=== PATIENT | female | born 1945 | race Caucasian/White ===

== ENCOUNTER 2017-12-09 08:03 | Outpatient (CLI) | payer MEDICARE, SELFPAY ==
[2017-12-09 11:33] LABS: HCT 40.6 % (36.0-46.0); HGB 13.1 g/dL (12.0-15.5); Mean Corp. HGB Concentration 32.3 g/dL (32.0-36.0); Mean Corpuscular Hemoglobin 28.9 pg (27.0-33.0); Mean Corpuscular Volume 89.4 fL (80-95); Mean Platelet Volume 10.9 fL (8.0-11.0); Platelet Count 321 x1000/uL (130-400); RBC 4.54 m/cumm (4.00-5.20); RBC Distribution Width 13.4 % (11.7-14.6); White Blood Cell Count 4.65 k/cumm (4.4-10.8)
[2017-12-09 11:56] LABS: ALT 23 U/L (12-78); AST 24 U/L (15-37); Albumin 4.2 g/dL (3.4-5.0); Alkaline Phosphatase 114 U/L (46-116); Anion Gap 9.3 mmol/L (3-11); BUN 12 mg/dL (7-18); Bilirubin, Total 0.4 mg/dL (0.2-1.0); CO2 28.7 mmol/L (21.0-32.0); CREATININE 0.71 mg/dL (0.55-1.02); Calcium 9.2 mg/dL (8.5-10.1); Chloride 104 mmol/L (98-107); Cholesterol 310 mg/dL (50-200); Glucose 105 mg/dL (70-100); HDL Cholesterol 39 mg/dL (40-60); LDL CHOLESTEROL 227 mg/dL (<100); Potassium 4.7 mmol/L (3.5-5.1); Sodium 142 mmol/L (136-145); Total Protein 7.8 g/dL (6.4-8.2); Triglyceride 260 mg/dL (30-150)
== END 2017-12-09 08:23 ==
DX: I10 Essential (primary) hypertension (principal); E78.5 Hyperlipidemia, unspecified; K21.9 Gastro-esophageal reflux disease without esophagitis; K44.9 Diaphragmatic hernia without obstruction or gangrene
CPT/HCPCS: 36415; 80053; 80061; 83721; 85027

== ENCOUNTER 2018-08-04 08:33 | Outpatient (CLI) | payer MEDICARE, SELFPAY ==
[2018-08-04 10:51] LABS: Bilirubin Negative (Negative); Blood Moderate (Negative); Clarity Sl Cloudy; Glucose Negative (Negative); Ketones Negative (Negative); Leukocyte Esterase Large (Negative); Nitrite Positive (Negative); Specific Gravity 1.015 (1.005-1.025); Urobilinogen 0.2 EU/dL (Up TO 0.2)
[2018-08-04 11:00] LABS: Bacteria Moderate HPF (Negative); C & S Indicated? Yes; Casts Negative LPF (Negative); Crystals Negative HPF (Negative); Epithelial Cells Negative HPF (Negative); Mucus Negative (Negative); RBC Negative (0-2); WBC >50 HPF (0-5)
== END 2018-08-04 08:53 ==
DX: R30.0 Dysuria (principal)
CPT/HCPCS: 87077; 81003; 81015; 87086; 87186

== ENCOUNTER 2018-08-15 19:04 | Outpatient (REF) | payer MEDICARE, SELFPAY | END 2018-08-15 19:24 | LOC: LBN 19:04 | DX: N89.8 Other specified noninflammatory disorders of vagina (principal) | CPT/HCPCS: 87480; 87510; 87660 ==

== ENCOUNTER 2019-01-08 07:17 | Outpatient (CLI) | payer MEDICARE, SELFPAY ==
[2019-01-08 11:27] LABS: ALT 19 U/L (14-59); AST 16 U/L (15-37); Albumin 3.8 g/dL (3.4-5.0); Alkaline Phosphatase 81 U/L (46-116); Anion Gap 9.5 mmol/L (3-11); BUN 14 mg/dL (7-18); Bilirubin, Total 0.2 mg/dL (0.2-1.0); CO2 28.5 mmol/L (21.0-32.0); CREATININE 0.76 mg/dL (0.55-1.02); Chloride 105 mmol/L (98-107); Glucose 96 mg/dL (70-100); Potassium 4.4 mmol/L (3.5-5.1); Sodium 143 mmol/L (136-145); TSH (W/Ref FT4) 3.74 uIU/mL (0.36-3.74); Total Protein 7.3 g/dL (6.4-8.2)
[2019-01-08 11:41] LABS: Calculated LDL 184 mg/dL; Cholesterol 273 mg/dL (50-200); HDL Cholesterol 36 mg/dL (40-60); Triglyceride 268 mg/dL (30-150)
[2019-01-09 12:54] LABS: HBs Antibody, Qual Negative; HBs Antibody, Quant 3.7 mIU/mL; Hepatitis B Core Antibody Negative (NEGAT); Hepatitis B surface Ag Negative (NEGAT); Hepatitis C Ab w Rflx HCV PCR Negative (NEGAT)
== END 2019-01-08 07:37 ==
DX: E03.9 Hypothyroidism, unspecified; I10 Essential (primary) hypertension; E78.5 Hyperlipidemia, unspecified; F41.9 Anxiety disorder, unspecified; K21.9 Gastro-esophageal reflux disease without esophagitis; C80.1 Malignant (primary) neoplasm, unspecified; G47.00 Insomnia, unspecified; Z11.59 Encounter for screening for other viral diseases
CPT/HCPCS: 36415; 80053; 80061; 86704; 86706; 86803; 87340; 84443

== ENCOUNTER 2019-10-16 08:37 | Outpatient (REF) | payer MEDICARE, SELFPAY ==
[2019-10-16 12:53] LABS: ALT 33 U/L (14-59); AST 9 U/L (15-37); Albumin 4.2 g/dL (3.4-5.0); Alkaline Phosphatase 85 U/L (46-116); BUN 15 mg/dL (7-18); Bilirubin, Total 0.3 mg/dL (0.2-1.0); CREATININE 0.78 mg/dL (0.55-1.02); Calcium 9.5 mg/dL (8.5-10.1); Chloride 103 mmol/L (98-107); GGT 26 U/L (5-55); Glucose 99 mg/dL (74-106); Potassium 4.3 mmol/L (3.5-5.1); Sodium 141 mmol/L (136-145); Total Protein 7.6 g/dL (6.4-8.2)
[2019-10-16 13:01] LABS: Lipase 55 U/L (73-393)
[2019-10-16 18:16] LABS: Bilirubin Negative (Negative); Blood Negative (Negative); Clarity Sl Cloudy (Clear); Glucose Negative (Negative); Ketones Negative (Negative); Leukocyte Esterase Small (Negative); Nitrite Negative (Negative); Specific Gravity 1.025 (1.005-1.025); Urobilinogen 0.2 EU/dL (Up TO 0.2)
[2019-10-16 18:31] LABS: RBC Negative HPF (0-2)
[2019-10-16 18:32] LABS: Bacteria Many HPF (Negative); C & S Indicated? Yes; Casts Negative LPF (Negative); Crystals Negative HPF (Negative); Epithelial Cells Rare HPF (Negative); Mucus Negative (Negative); Other Cells Negative (Negative)
== END 2019-10-16 08:57 ==
LOC: LBN 08:37
DX: E03.9 Hypothyroidism, unspecified (principal); E78.5 Hyperlipidemia, unspecified; F41.9 Anxiety disorder, unspecified; I10 Essential (primary) hypertension; K21.9 Gastro-esophageal reflux disease without esophagitis; R10.11 Right upper quadrant pain; R30.0 Dysuria
CPT/HCPCS: 36415; 80053; 83690; 87077; 81003; 81015; 82977; 87086; 87186

== ENCOUNTER 2019-10-17 02:12 | Outpatient (CLI) | payer MEDICARE, SELFPAY ==
--- NOTE | 2019-10-17 06:00 | DI.US_ITS ---
EXAM: US ABDOMEN CLINICAL HISTORY: RUQ chronic pain/ache,R10.11 TECHNIQUE: Ultrasound abdomen performed using standard protocol. COMPARISON: No exams were available for comparison FINDINGS: LIVER: Normal size. Increased echogenicity, consistent with hepatic steatosis.. No focal liver lesi ons are seen.. GALLBLADDER: No evidence of cholelithiasis. No evidence of wall thickening. No pericholecystic fluid identified. GALARZA'S SIGN: Negative. BILIARY SYSTEM: No intrahepatic or extrahepatic biliary ductal dilation. KIDNEYS: Kidneys are symmetric in size. No evidence of renal calculi. No evidence of hydronephrosis. No renal mass or cyst identified. PANCREAS: Normal where visualized. SPLEEN: Not enlarged. ABDOMINAL AORTA AND IVC: Visualized portions normal caliber. ASCITES: None seen. IMPRESSION: Moderate hepatic steatosis. Normal appearing gallbladder. DATA REPOSITORY:
== END 2019-10-17 02:32 ==
DX: K76.0 Fatty (change of) liver, not elsewhere classified (principal)
CPT/HCPCS: 76700

== ENCOUNTER 2019-11-12 00:42 | Outpatient (CLI) | payer MEDICARE, SELFPAY ==
--- NOTE | 2019-11-12 14:50 | DI.MAMMO_ITS ---
EXAM: MAMMO SCREENING CLINICAL HISTORY: screening,Z12.39 TECHNIQUE: Mammograms were interpreted according to the usual protocol including computer analysis w SMS Assist CAD system, tomosynthesis and C-view imaging. COMPARISON: FINDINGS: Breasts are of moderate density with fairly symmetrical distribution of fibroglandular tissue. No do minant mass or clumped microcalcification is identified in either breast. The current examination is compared with previous examinations including December 2017 and there has been no gross interval dewitt ge in appearance comparison with the previous studies. IMPRESSION: No specific evidence of malignancy at this time. Routine screening examinations are suggested at ye yulia intervals in this age group according to the ACS ACR guidelines. BI-RADS Cat 1 - Negative Breast Density - Category B - Scattered areas of fibroglandular density
== END 2019-11-12 01:02 ==
DX: Z12.31 Encounter for screening mammogram for malignant neoplasm of breast (principal); R92.2 Inconclusive mammogram
CPT/HCPCS: 77063; 77067

== ENCOUNTER 2019-12-13 21:46 | Outpatient (REF) | payer MEDICARE, SELFPAY ==
[2019-12-13 21:19] LABS: Bilirubin Negative (Negative); Blood Negative (Negative); Clarity Sl Cloudy (Clear); Glucose Negative (Negative); Ketones Negative (Negative); Leukocyte Esterase Large (Negative); Nitrite Negative (Negative); Specific Gravity 1.015 (1.005-1.025); Urobilinogen 0.2 EU/dL (Up TO 0.2); pH 7.5 (5-8)
[2019-12-13 21:32] LABS: Bacteria Moderate HPF (Negative); C & S Indicated? Yes; Casts Negative LPF (Negative); Crystals Negative HPF (Negative); Epithelial Cells Few HPF (Negative); Mucus Negative (Negative); RBC 0-2 HPF (0-2); WBC 20-50 HPF (0-5)
== END 2019-12-13 22:06 ==
LOC: LBN 21:46
DX: N39.0 Urinary tract infection, site not specified (principal)
CPT/HCPCS: 87077; 81003; 81015; 87086; 87186

== ENCOUNTER 2021-01-15 01:55 | Outpatient (CLI) | payer MEDICARE, SELFPAY ==
[2021-01-15 12:37] LABS: ALT 23 U/L (14-59); AST 14 U/L (15-37); Albumin 4.1 g/dL (3.4-5.0); Alkaline Phosphatase 90 U/L (46-116); Anion Gap 11.6 mmol/L (3-11); BUN 11 mg/dL (7-18); Bilirubin, Total 0.4 mg/dL (0.2-1.0); CO2 27.4 mmol/L (21.0-32.0); CREATININE 0.7 mg/dL (0.55-1.02); Calcium 9.2 mg/dL (8.5-10.1); Chloride 103 mmol/L (98-107); Glucose 101 mg/dL (74-106); Potassium 3.8 mmol/L (3.5-5.1); Sodium 142 mmol/L (136-145); Total Protein 7.6 g/dL (6.4-8.2)
== END 2021-01-15 01:56 | disposition home or self-care (01) ==
DX: I10 Essential (primary) hypertension (principal); F41.9 Anxiety disorder, unspecified; R63.8 Other symptoms and signs concerning food and fluid intake; K21.9 Gastro-esophageal reflux disease without esophagitis
CPT/HCPCS: 36415; 80053

== ENCOUNTER 2021-01-21 00:56 | Outpatient (CLI) | payer MEDICARE, SELFPAY ==
--- NOTE | 2021-01-21 07:29 | DI.MAMMO_ITS ---
Exam(s) MAMMO DIAGNOSTIC BI EXAM: MAMMO DIAGNOSTIC BI CLINICAL HISTORY: Enlarged lymph node x2 months - enlarging,NIPPLE INVERSION,AXILLARY ADENOPA. TECHNIQUE: Both CC and MLO views of both breast were obtained with 3D tomosynthesis technique and ut ilizing computer aided detection (CAD). Complete left breast ultrasound including left axilla was also performed today. COMPARISON: Prior mammograms dating back to 2011, the most recent being October 2019. This patient a pparently feels a better left breast axillary tail region possibly left axilla FINDINGS: There has been no significant change in the appearance distribution fibroglandular tissue both breast s. There are no CAD designations. There are no new ominous masses nor malignant-appearing microcalcification groups in either breast. There is no new architectural distortion or skin thickening-traction. Benign appearing lymph nodes i n both axillary regions are again noted. IMPRESSION: No radiographic evidence of malignancy Please note that left breast ultrasound performed following this mammogram today also revealed no sig nificant findings in the breast nor in the left axilla. Please see that separate dictated ultrasound report The patient was informed of the findings and follow-up recommendations prior to leaving the [facility] today. BI-RADS Category 2 - Benign Findings Breast Density - Category B - Scattered areas of fibroglandular density Breast density Category C or D implies that the patient has dense breast tissue. Dense breast tissue can make it harder to find cancer on a mammogram. Dense breast tissue is also associated with an incr eased risk of breast cancer. This information about the result of the mammogram report was provided to the patient to raise their awareness. Use this report when you speak with the patient about their risks for breast cancer, which includes their family history. At that time, you may recommend additional screening tests (Ultrasoun d or MRI) as these tests may add significant information. A negative radiographic report should not delay biopsy if a dominant or clinically suspicious mass is present. Up to ten percent of cancers are not identified on mammography. A negative report may reinforce clinical impression. Adenosis and dense breasts may obscure an underlying neoplasm. False positive reports average 6 to 10%. Patient will receive a letter notifying them of these results.
--- NOTE | 2021-01-21 07:29 | DI.US_ITS ---
Exam(s) US BREAST LT COMPLETE EXAM: US BREAST LT COMPLETE CLINICAL HISTORY: Enlarged lymph node x2 months - enlarging,NIPPLE INVERSION,H/O RT AXILLA CA. TECHNIQUE: Complete ultrasound of the left breast was performed including all 4 quadrants, the retro areolar region, and the ipsilateral axilla. COMPARISON: Today's mammogram as well as prior mammograms reviewed FINDINGS: There is no evidence of solid or significant cystic lesions in all 4 quadrants of the left breast nor in the retroareolar region. With respect of the left axilla, there are no concerning masses nor fluid collections. Therefore oswald ign-appearing lymph nodes, this commensurate with what is seen in her left axilla on today's mammogra m (which is also unchanged from prior mammograms). IMPRESSION: Benign ultrasound findings, as described above. BI-RADS Category 2 - Benign Findings Breast Density - Category B - Scattered areas of fibroglandular density Breast density Category C or D implies that the patient has dense breast tissue. Dense breast tissue can make it harder to find cancer on a mammogram. Dense breast tissue is also associated with an incr eased risk of breast cancer. This information about the result of the mammogram report was provided to the patient to raise their awareness. Use this report when you speak with the patient about their risks for breast cancer, which includes their family history. At that time, you may recommend additional screening tests (Ultrasoun d or MRI) as these tests may add significant information. A negative radiographic report should not delay biopsy if a dominant or clinically suspicious mass is present. Up to ten percent of cancers are not identified on mammography. A negative report may reinforce clinical impression. Adenosis and dense breasts may obscure an underlying neoplasm. False positive reports average 6 to 10%. Patient will receive a letter notifying them of these results.
== END 2021-01-21 01:16 ==
DX: N64.59 Other signs and symptoms in breast (principal); R59.0 Localized enlarged lymph nodes
CPT/HCPCS: 76642; 77062; 77066; G0279

== ENCOUNTER 2021-08-29 04:44 | Emergency (ER) | payer MEDICARE, SELFPAY ==
--- NOTE | 2021-08-29 04:45 | RT.EKG_ITS ---
APPROVED REPORT Exam: Resting ECG Reason for Exam: high bp Patient Location: E HR:70 bpm ECG Measurements Heart Rate 70 AXIS TX 180 P 68 QRSd 69 QRS 25 QT 379 T 15 QTc 411 Conclusion Sinus rhythm...normal P axis, V-rate 60- 99 Nonspecific T abnormalities, anterior leads...T <-0.10mV, V2-V4
[2021-08-29 04:50] VITALS: BP 174/99; PULSE 66; RESP 18; TEMP 36.2; O2SAT 98
[2021-08-29 04:58] VITALS: RESP 16
[2021-08-29 05:28] LABS: Abs Immature Grans 0.01 10^3/uL (0.0-0.06); Absolute Basophil Count 0.04 10^3/uL (0.0-0.2); Absolute Eosinophil Count 0.11 10^3/uL (0.0-0.7); Absolute Lymphocyte Count 2.02 10^3/uL (1.2-3.4); Absolute Neutrophil Count 2.86 10^3/uL (1.2-6.7); Basophils % 0.7; HCT 41.9 % (36.0-46.0); HGB 13.1 g/dL (11.2-15.7); Immature Grans % 0.2; Lymphocytes % 35.8; MCH 27.2 pg (27.0-33.0); MCHC 31.3 % (32.0-36.0); MCV 87 fL (80-95); MPV 10.7 fL (8.0-11.0); Monocytes % 10.6; Neutrophils % 50.7; Platelet Count 303 10^3/uL (130-400); RBC 4.82 10^6/uL (3.93-5.22); RDW 13.1 % (11.7-14.6); RDW-SD 41.8 fL; WBC 5.64 10^3/uL (4.4-10.8)
[2021-08-29] MEDS: Metoprolol 50 MG TAB PO (05:29)
[2021-08-29 05:48] LABS: ALT 28 U/L (14-59); AST 19 U/L (15-37); Albumin 4.2 g/dL (3.4-5.0); Alkaline Phosphatase 95 U/L (46-116); Anion Gap 11.4 mmol/L (3-11); BUN 14 mg/dL (7-18); Bilirubin, Total 0.2 mg/dL (0.2-1.0); CO2 27.6 mmol/L (21.0-32.0); CREATININE 0.8 mg/dL (0.55-1.02); Calcium 9.4 mg/dL (8.5-10.1); Chloride 101 mmol/L (98-107); Glucose 112 mg/dL (74-106); Potassium 3.9 mmol/L (3.5-5.1); Sodium 140 mmol/L (136-145); Total Protein 8.4 g/dL (6.4-8.2); Troponin I < 50 ng/L (<or=60)
[2021-08-29 05:55] LABS: TSH (W/Ref FT4) 6.24 uIU/mL (0.36-3.74)
--- NOTE | 2021-08-29 06:02 | ED.GENADUL_ITS ---
Discharge Plan Disposition Patient Disposition: STILL A PATIENT Condition: Stable Discharge Details Clinical Impression: Hypertensive urgency Primary Care Provider: Autumn Segura ED Provider: Alejandro Ibanez Home Meds and New Rx's Prescriptions: New chlorthalidone 25 mg tablet 12.5 mg PO DAILY Qty: 30 0RF Azo Cranberry 250 mg tablet,chewable 250 mg PO TID Qty: 30 0RF Continued acetaminophen [Tylenol Arthritis Pain] 650 mg tablet extended release 650 mg PO Q8H metoprolol tartrate 50 mg tablet 50 mg PO BID Qty: 180 4RF cetirizine [Zyrtec] 10 MG tablet 10 mg PO DAILY aspirin [Aspir-81] 81 MG tablet,delayed release (DR/EC) 81 mg PO DAILY mometasone [Nasonex] 17 GM spray,non-aerosol 1 spray NS BID PRNQty: 3 cholecalciferol (vitamin D3) 1,000 UNIT tablet 1,000 unit PO DAILY alprazolam 0.25 MG tablet 0.25 mg PO DAILY PRNQty: 15 omeprazole-sodium bicarbonate [Zegerid] 1 EACH capsule 1 cap PO DAILY Discontinued Azo Cranberry 250 mg tablet,chewable 250 mg PO TID lisinopril-hydrochlorothiazide 10-12.5 mg tablet 1 tab PO DAILY Qty: 90 4RF Discharge Instructions Instructions: Hypertension (ED) Additional Instructions: Please continue take metoprolol as prescribed. Start chlorthalidone. You received initial dose today and your next dose should be tomorrow. Stop taking lisinopril/hydrochlorothiazide. Monitor your blood pressure twice a day and keep a record. Please contact your primary care physician to arrange follow-up. Return to the ER immediately for any worsening or new concerning symptoms. Referrals: Autumn Segura, MABEL [Primary Care Provider] - Medical Decision Making 613 --76-year-old female here with elevated blood pressure, generally not feeling well with a jittery sensation intermittently as well as prickly sensation in her left arm. Patient is hypertensive on arrival. She did take a dose Xanax of just prior to coming to the emergency department. UTI reassessment has improved. Patient has had some intermittent chest discomfort although not today. EKG was reviewed and interpreted by me: Please see report, sinus rhythm, T wave inversions are noted in V2 and V3, no old for comparison. Plan to troponin. I suspect the patient has hypertensive emergency. Plan to give morning dose of metoprolol 50 mg and I will also start chlorthalidone 12.5 mg. 722 --patient reassessed, blood pressure improved and symptoms resolved. Plan for delta troponin. HPI General Mode of arrival: ambulatory . Date/Time Provider Initiated Documentation: 08/29/21 04:48 . Limitations to Documentation: no limitations . Information obtained by: patient . HPI Narrative: 76-year-old female with multiple medical problems including history of essential hypertension, here with chief complaint of elevated blood pressure. Patient notes her blood pressure has been elevated for weeks. She was seen by her primary care physician about a week ago and metoprolol was decreased from 150 mg daily to 100 mg daily and lisinopril/hydrochlorothiazide was started. She notes that since starting this medication seems like her blood pressure is more elevated. She states that about an hour after he takes medicine she feels dizzy and unwell. She did not take medicine yet today. Patient states since yesterday she has had prickly sensation in her left arm, jittery, and general fatigue. She denies chest discomfort. No shortness of breath. Related Data Home Medications Medication Instructions Recorded Confirmed aspirin 81 mg tablet,delayed 81 mg PO DAILY 07/31/12 08/29/21 release (Aspir-) cetirizine 10 mg tablet (Zyrtec) 10 mg PO DAILY 07/31/12 08/29/21 mometasone 50 mcg/actuation nasal 1 spray NS BID PRN ##3 11/15/13 08/29/21 spray (Nasonex) cholecalciferol (vitamin D3) 25 1,000 unit PO DAILY 11/21/14 08/29/21 mcg (1,000 unit) tablet alprazolam 0.25 mg tablet 0.25 mg PO DAILY PRN #15 tabs 12/29/16 08/29/21 omeprazole 20 mg-sodium 1 cap PO DAILY 11/14/17 08/29/21 bicarbonate 1.1 gram capsule (Zegerid) acetaminophen 650 mg 650 mg PO Q8H 08/15/18 08/29/21 tablet,extended release (Tylenol Arthritis Pain) metoprolol tartrate 50 mg tablet 50 mg PO BID #180 tab-caps 08/20/21 08/29/21 chlorthalidone 25 mg tablet 12.5 mg PO DAILY #30 tabs 08/29/21 cranberry fruit concentrate 250 mg 250 mg PO TID #30 tabs 08/29/21 chewable tablet (Azo Cranberry) Previous Rx's Medication Instructions Recorded metoprolol tartrate 50 mg tablet 50 mg PO BID #180 tab-caps 08/20/21 chlorthalidone 25 mg tablet 12.5 mg PO DAILY #30 tabs 08/29/21 cranberry fruit concentrate 250 mg 250 mg PO TID #30 tabs 08/29/21 chewable tablet (Azo Cranberry) Allergies Allergy/AdvReac Type Severity Reaction Status Date / Time Penicillins Allergy Mild SKIN RASH Verified 08/29/21 04:56 amoxicillin Allergy Unknown HIVES Verified 08/29/21 04:56 metronidazole Allergy Heart Verified 08/29/21 04:56 racing ciprofloxacin [From Cipro] AdvReac Intermediate Muscle Verified 08/29/21 04:56 spasms in legs ciprofloxacin HCl AdvReac Intermediate Muscle Verified 08/29/21 04:56 [From Cipro] spasms in legs doxycycline AdvReac Unknown ANXIETY Verified 08/29/21 04:56 ezetimibe AdvReac Unknown Verified 08/29/21 04:56 Fish Containing Products AdvReac Unknown Fish Oil Verified 08/29/21 04:56 niacin AdvReac Unknown Verified 08/29/21 04:56 Sulfa (Sulfonamide AdvReac Unknown GI UPSET Verified 08/29/21 04:56 Antibiotics) HMG-COA REDUCTASE INHIBITORS AdvReac Unknown Uncoded 08/29/21 04:56 General Stated Complaint: Chest Pain DARIUSZ: 2 Review of Systems All systems reviewed & are unremarkable except as noted in HPI and below Constitutional Constitutional: Reports lethargy and Reports weakness Cardiovascular Cardiovascular: Denies dyspnea Comments: Patient denies chest pain at this time. She does note some sharp discomfort in her chest left anterior intermittently in the past Respiratory Respiratory: Denies cough and Denies dyspnea Musculoskeletal Musculoskeletal: Denies numbness Neurologic Neurologic: Reports as per HPI, Denies numbness, Denies sensory deficit and Reports weakness PFSH All Active Problems (Updated 08/29/21 @ 06:51 by Alejandro Ibanez MD) Hypertensive urgency (Acute) Melanoma (Chronic) + Bx right upper arm 01/2021 (Melanoma) - removed by excision Feb.19. Recommend Q3 month checks x1 yr, then Q6 months for 1 year, then yearly. 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 ; Has had a recurrence and had Moh's surgery Personal history of colonic polyps (Acute 02/17/09) neg path report of polyp done in [place] 2009 Osteoporosis (Acute) DEXA in 2005; DEXA in 2007-stable DEXA in 2009-osteopenia Obstructive sleep apnea syndrome (Acute) C-Pap panic attack witnessed during sleep study Multiple drug allergies (Acute) and intolerances 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 Hyperlipidemia (Chronic) intolerance to statins, Zetia and fish oil Gastroesophageal reflux disease (Chronic) Gastric polyps per EGD 07/29 Barretts esophogus 07/29 [place] [facility] [place] 5 y[place] Hiatal hernia Family history of abdominal aortic aneurysm (AAA) (Chronic 12/29/16) Essential hypertension (Acute 12/15/12) Anxiety (Acute 11/24/12) Medical History Barretts esophagus History of colonic polyps Surgical History Appendectomy Ligation of fallopian tube PROCEDURES UNILAT OOPHORECTOMY MOHS SURGERY OF RIGHT AXILLARY CYSTIC CARCINOMA; U/S OF BLADDER, LIVER, GALLBLADDER Family History Mother , age 88 Essential hypertension Aneurysm Heart disease Hyperlipidemia Stroke HH (hiatus hernia) Bladder cancer Colon cancer Father , age 54 Essential hypertension Aneurysm Heart disease Stroke Sister Essential hypertension Heart disease Hyperlipidemia Asthma Skin cancer Brother Substance abuse Essential hypertension Heart disease Hyperlipidemia Alcohol abuse Throat cancer Maternal Grandfather , age 57 Aneurysm Heart disease Alcohol abuse Paternal Grandfather , age 74 Essential hypertension Heart disease Maternal Grandmother Diabetes Essential hypertension Heart disease Paternal Grandmother Essential hypertension Heart disease Maternal Aunt Aneurysm HH (hiatus hernia) Brother Substance abuse Essential hypertension Heart disease Alcohol abuse Brother Essential hypertension Heart disease Alcohol abuse Son Essential hypertension Alcohol abuse Daughter No problems noted. Daughter No problems noted. Other Family history of abdominal aortic aneurysm (AAA) Social History Smoking/Tobacco Use Status: Former Tobacco Use tobacco type: cigarettes Quit Date: 03/21/89 Second Hand Exposure: Yes Smoking risk assessment performed?: Yes Alcohol Intake: current Alcohol Intake frequency: holidays/special occasions only Drug use: Never Substance use type: does not use Caregiver/Support person: No Household members: spouse Housing: house Communication Needs: None Pets and animals: No Sexually active: No Current gender identity: female What is your relationship status?: How often do you talk on the phone with friends or family?: three or more times per week How often do you get together with friends or relatives?: once per week How often do you attend episcopal or voodoo services?: 1-3 times per year Do you belong to any clubs or organized social groups?: no Panel score (0-1 are the most socially isolated patients): 2 What type of physical activity do you participate in: decline to answer Duration: decline to answer Frequency: decline to answer Isadora/Baptism: [employer] Special isadora needs: No Seatbelt use: always Helmet use: No Drive intox or ride w/intox vibratory pile driver: No Do you feel safe at home: Yes Do you feel safe in your relationship?: Yes Victim of physical abuse: No Victim of emotional abuse: No Victim of sexual abuse: No Would you like helpful sources: No Exam Const General: cooperative and no acute distress HENMT Mouth: moist mucous membranes Eyes Conjunctivae: normal conjunctivae Sclera: normal sclerae EOM: EOM intact bilaterally Neck Neck: trachea midline and supple Resp Auscultation: clear to auscultation bilaterally, no rales, no rhonchi and no wheezes Cardio Jugular venous pressure: no JVD Rate: regular rate and not tachycardic Rhythm: regular rhythm GI Palpation: soft, not firm, no guarding, no masses, not rigid and nontender Skin General skin exam: no rashes or lesions noted Neuro General: patient alert, patient awake, patient oriented x3 and tone normal Cranial Nerves: CN's II-XI intact bilaterally Cognition: normal cognition Speech: speech normal Gait: normal gait Motor: strength 5/5 throughout Sensory Exam: no sensory deficits noted Extrem General: no calf tenderness and no edema Psych Appearance: grossly normal Mental Status: mental status grossly normal Speech and Movement: speech and movement normal Course Vital Signs Vital signs: Vital Signs Temperature 36.2 C L 08/29/21 04:50 Pulse 66 08/29/21 04:50 Respiratory Rate 18 08/29/21 04:50 Blood Pressure 174/99 H 08/29/21 04:50 Pulse Oximetry 98 08/29/21 04:50 Temperature 36.2 C L 08/29/21 04:50 Pulse 66 08/29/21 04:50 Respiratory Rate 16 08/29/21 04:58 Respiratory Effort Non-Labored 08/29/21 04:58 Respiratory Depth Normal 08/29/21 04:58 Respiratory Pattern Normal 08/29/21 04:58 Blood Pressure 174/99 H 08/29/21 04:50 Pulse Oximetry 98 08/29/21 04:50 Pain Level 8 08/29/21 04:50 Lab/Test Results Lab/Test Results: Laboratory Tests Range/Units 08/29/21 08/29/21 08/29/21 05:15 05:15 05:15 WBC (4.4-10.8) 10^3/uL 5.64 RBC (3.93-5.22) 10^6/uL 4.82 Hgb (11.2-15.7) g/dL 13.1 Hct (36.0-46.0) % 41.9 MCV (80-95) fL 87 MCH (27.0-33.0) pg 27.2 MCHC (32.0-36.0) % 31.3 L RDW (11.7-14.6) % 13.1 Plt Count (130-400) 10^3/uL 303 MPV (8.0-11.0) fL 10.7 Immature Gran % 0.2 Neutrophils % 50.7 Lymphocytes % 35.8 Monocytes % 10.6 Eosinophils % 2.0 Basophils % 0.7 Nucleated RBC % (0.0-0.3) % 0.0 Absolute Neutrophils (1.2-6.7) 10^3/uL 2.86 Absolute Lymphocytes (1.2-3.4) 10^3/uL 2.02 Absolute Monocytes (0.1-0.8) 10^3/uL 0.60 Absolute Eosinophils (0.0-0.7) 10^3/uL 0.11 Absolute Basophils (0.0-0.2) 10^3/uL 0.04 Sodium (136-145) mmol/L 140 Potassium (3.5-5.1) mmol/L 3.9 Chloride (98-107) mmol/L 101 Carbon Dioxide (21.0-32.0) mmol/L 27.6 Anion Gap (3-11) mmol/L 11.4 H BUN (7-18) mg/dL 14 Creatinine (0.55-1.02) mg/dL 0.8 Estimated GFR/1.73 m2 (mL/min/1.73m2) >= 60.00 Glucose (74-106) mg/dL 112 H Calcium (8.5-10.1) mg/dL 9.4 Total Bilirubin (0.2-1.0) mg/dL 0.2 AST (15-37) U/L 19 ALT (14-59) U/L 28 Alkaline Phosphatase (46-116) U/L 95 Troponin I (<or=60) ng/L < 50 Total Protein (6.4-8.2) g/dL 8.4 H Albumin (3.4-5.0) g/dL 4.2 TSH (0.36-3.74) uIU/mL 6.24 H Sign Out Sign Out Data: Sign Out Comment: Hypertensive urgency awaiting delta troponin. If negative reassess for likely discharge. Last updated by Alejandro Ibanez MD at 08/29/21 07:27
[2021-08-29 06:15] LABS: FREE T4 1.18 ng/dL (0.76-1.46)
[2021-08-29] MEDS: Chlorthalidone 25 MG TAB 12.5 MG PO (06:23)
[2021-08-29 06:24] VITALS: BP 143/74
[2021-08-29 08:41] LABS: Troponin I < 50 ng/L (<or=60)
--- NOTE | 2021-08-29 09:04 | W.EDPROG ---
Date of service: 08/29/21 Time of Service: 09:05 Medical Decision Making pt signed out to me pending repeat troponin and ekg which are negative and unchanged. She has no symptoms and vitals are stable. Dr. bIanez is having her stop her lisinopril/hctz and started her on chlorthalidone. She is going to f/u with her pcp and return precautions given Sign Out Sign Out Data: Sign Out Comment: Follow-up delta troponin and reassess for disposition. Last updated by Alejandro Ibanez MD at 08/29/21 08:17 Discharge Plan Disposition Patient Disposition: HOME Condition: Stable Discharge Details Clinical Impression: Hypertensive urgency Primary Care Provider: Autumn Segura ED Provider: Russell Jansen Home Meds and New Rx's Prescriptions: New chlorthalidone 25 mg tablet 12.5 mg PO DAILY Qty: 30 0RF Azo Cranberry 250 mg tablet,chewable 250 mg PO TID Qty: 30 0RF Continued acetaminophen [Tylenol Arthritis Pain] 650 mg tablet extended release 650 mg PO Q8H metoprolol tartrate 50 mg tablet 50 mg PO BID Qty: 180 4RF cetirizine [Zyrtec] 10 MG tablet 10 mg PO DAILY aspirin [Aspir-81] 81 MG tablet,delayed release (DR/EC) 81 mg PO DAILY mometasone [Nasonex] 17 GM spray,non-aerosol 1 spray NS BID PRNQty: 3 cholecalciferol (vitamin D3) 1,000 UNIT tablet 1,000 unit PO DAILY alprazolam 0.25 MG tablet 0.25 mg PO DAILY PRNQty: 15 omeprazole-sodium bicarbonate [Zegerid] 1 EACH capsule 1 cap PO DAILY Discontinued Azo Cranberry 250 mg tablet,chewable 250 mg PO TID lisinopril-hydrochlorothiazide 10-12.5 mg tablet 1 tab PO DAILY Qty: 90 4RF Discharge Instructions Instructions: Hypertension (ED) Additional Instructions: Please continue take metoprolol as prescribed. Start chlorthalidone. You received initial dose today and your next dose should be tomorrow. Stop taking lisinopril/hydrochlorothiazide. Monitor your blood pressure twice a day and keep a record. Please contact your primary care physician to arrange follow-up. Return to the ER immediately for any worsening or new concerning symptoms. Referrals: Autumn Segura NP [Primary Care Provider] -
[2021-08-29 09:25] VITALS: BP 116/68; PULSE 72; RESP 16; O2SAT 98
== END 2021-08-29 09:27 | disposition home or self-care (01) ==
PROVIDERS: Student in an Organized Health Care Education/Training Program; Emergency Provider Emergency Medicine
DX: I10 Essential (primary) hypertension (principal)
CPT/HCPCS: 80053; 93005; 99283; 84439; 84443; 84484; 85025; 93010

== ENCOUNTER 2022-04-07 03:14 | Outpatient (CLI) | payer MEDICARE, SELFPAY ==
[2022-04-07 13:14] LABS: ALT 24 U/L (14-59); AST 31 U/L (15-37); Albumin 4.2 g/dL (3.4-5.0); Alkaline Phosphatase 87 U/L (46-116); Anion Gap 10.1 mmol/L (3-11); BUN 14 mg/dL (7-18); Bilirubin, Total 0.4 mg/dL (0.2-1.0); CO2 27.9 mmol/L (21.0-32.0); CREATININE 0.8 mg/dL (0.55-1.02); Calcium 9.4 mg/dL (8.5-10.1); Calculated LDL 208 mg/dL (<100); Chloride 103 mmol/L (98-107); Cholesterol 298 mg/dL (<200); Estimated GFR 77.27 (mL/min/1.73m2); Glucose 103 mg/dL (74-106); HDL Cholesterol 42 mg/dL (40-60); Potassium 4.4 mmol/L (3.5-5.1); Sodium 141 mmol/L (136-145); TSH (W/Ref FT4) 3.87 uIU/mL (0.36-3.74); Total Protein 8.3 g/dL (6.4-8.2); Triglyceride 240 mg/dL (<150)
[2022-04-07 13:24] LABS: Vitamin D 25 Total 55.6 ng/mL (30-100)
[2022-04-07 13:31] LABS: Bilirubin, Direct 0.1 mg/dL (0.0-0.2); FREE T4 1.26 ng/dL (0.76-1.46)
== END 2022-04-07 03:15 | disposition home or self-care (01) ==
LOC: LOS 03:14
PROVIDERS: PCP Student in an Organized Health Care Education/Training Program; Visit Provider Student in an Organized Health Care Education/Training Program
DX: R79.89 Other specified abnormal findings of blood chemistry (principal); R06.09 Other forms of dyspnea; M81.0 Age-related osteoporosis without current pathological fracture; K76.0 Fatty (change of) liver, not elsewhere classified; R10.11 Right upper quadrant pain
CPT/HCPCS: 36415; 80048; 80061; 80076; 82306; 81015; 82565; 83735; 84156; 84439; 84443

== ENCOUNTER 2022-04-20 03:09 | Outpatient (CLI) | payer MEDICARE, SELFPAY ==
[2022-04-20 13:31] LABS: Bacteria Rare HPF (Negative); C & S Indicated? Yes; Casts Negative LPF (Negative); Crystals Negative HPF (Negative); Epithelial Cells Few HPF (Negative); Mucus Negative (Negative); RBC Negative HPF (0-2)
[2022-04-20 14:02] LABS: COMMENT (LAB VIEW ONLY) 20.75 mg/dL; PROTEIN < 6.0 mg/dL
[2022-04-20 22:51] LABS: Thyroglobulin Antibody 16 U/mL (<=60); Thyroperoxidase Antibody 34 U/mL (<=60)
== END 2022-04-20 03:10 | disposition home or self-care (01) ==
PROVIDERS: PCP Student in an Organized Health Care Education/Training Program; Visit Provider Student in an Organized Health Care Education/Training Program
DX: I10 Essential (primary) hypertension (principal); D36.9 Benign neoplasm, unspecified site; R10.11 Right upper quadrant pain; K76.0 Fatty (change of) liver, not elsewhere classified; R82.998 Other abnormal findings in urine; R79.89 Other specified abnormal findings of blood chemistry; Z87.440 Personal history of urinary (tract) infections
CPT/HCPCS: 36415; 86376; 86850; 81015; 82565; 84156; 87086

== ENCOUNTER 2022-04-27 02:32 | Outpatient (CLI) | payer MEDICARE, SELFPAY ==
--- NOTE | 2022-04-27 15:00 | DI.US_ITS ---
APPROVED REPORT EXAM: Comprehensive 2D, Doppler, and color-flow Echocardiogram Patient Location: Out-Patient [facility]ing Supervisor: Lynne Borrego RDCS (AE) Indications: Evaluate ejection fraction with recent SOB, HTN, Dyspnea Other Information Study Quality: Adequate Conclusion Normal left ventricular wall thickness and chamber size. Estimated ejection fraction is 60%. Wall m otion is normal Normal right ventricular size and systolic function Both atria are normal in size There is no structural or hemodynamically significant valvular disease Estimated right ventricular systolic pressure is 30 mmHg Wall motion Left Ventricle The left ventricle is normal size. The left ventricular systolic function is normal. The left ventric ular ejection fraction is within the normal range. There is normal left ventricular wall thickness. T here is normal LV segmental wall motion. There is no ventricular septal defect visualized. LVEF is 60 %. Right Ventricle The right ventricle is normal size. The right ventricular systolic function is normal. The RVSP is 29 .9mmHg. Atria The left atrium size is normal. The right atrium size is normal. The interatrial septum is intact wit h no evidence for an atrial septal defect. Aortic Valve The aortic valve is normal in structure. Aortic valve is trileaflet. There is no aortic valvular sten osis. No aortic regurgitation is present. Mitral Valve The mitral valve is normal in structure. No evidence of mitral valve stenosis. Trace mitral regurgita tion. Tricuspid Valve The tricuspid valve is normal in structure. There is no tricuspid valve stenosis. Trace tricuspid reg urgitation. Pulmonic Valve The pulmonary valve is normal in structure. There is no pulmonic valvular stenosis. Trace pulmonic re gurgitation. Great Vessels The aortic root is normal in size. The ascending aorta is normal in size. Aortic arch is not well vis ualized. IVC is normal in size and collapses >50% with inspiration. Pericardium There is no pericardial effusion. 2D Dimensions IVSD d PLAX 0.85 cm F: 0.6-1.0 LV Vol A2C d MOD 62.5 mL LVPW d PLAX 0.85 cm F: 0.6 - 1.0 LV Vol A4C d MOD 68.6 mL LVID d PLAX 4.19 cm F: 3.8 - 5.2 LA vol/ BSA A2C s A-L 22.5 mL/m2 LVDs 2.70 cm F: 2.2 - 3.5 LA vol/ BSA A4C s A-L 17.7 mL/m2 Ao Root d 2.11 cm F: 2.7 - 3.3 LA Vol/ BSA Biplane s A-L 20.6 mL/m2 RA Area A4C 8.70 cm2 LA Area A4C s MOD 13.64 cm2 RA Vol/ BSA A4C s A-L 10.5 mL/m2 LA Area A2C s MOD 14.96 cm2 Ao Asc Diam d 3.14 cm F: 2.3 - 3.1 LV EF A4C MOD 61.4 % LV EF Teichholz 64.4 % LV EF A2C MOD 60.2 % LVEF (Mendez's) 60.37 % F: 54 - 74 LV EF Biplane MOD 60.4 % LV Volume 52.27 mL F: 46 - 106 SV 39.79 mL LV Volume Index 30.56 mL/m2 F: 29 - 61 SV Index 23.32 mL/m2 LV Vol Biplane MOD 65.9 mL FS 34.75 % LV Diastology MV E' medial 0.101 (>0.07 m/s) E/A Ratio 0.7 LV E/e MED 6.05 (<14) MV E Vmax 0.61 (0.4-1.3 m/s) MV E' lateral 0.098 (>0.1 m/s) MV A Vmax 0.85 (0.4-1.3 m/s) LV E/e LAT 6.25 (<14) MV E/A Ratio 0.71 MV E/E' medial 6.08 MV E/E' lateral 6.28 Aortic Valve LVOT Area 2.58 cm2 AoV Area Vmax 2.05 cm2 LVOT Vmax 1.38 m/s AoV Area/ BSA (Vmax) 1.20 cm2/m2 LVOT Mean Anurag. 0.84 m/s JOSELYN Mean Anurag. 1.76 cm2 LVOT Peak Grad 7.7 mmHg JOSELYN Mean Anurag. Index 1.03 cm2/m2 LVOT Mean Grad 3.5 mmHg LVOT VTI 0.296 m LVOT Diam s 1.80 cm AoV Vmax 1.74 m/s Velocity Ratio 0.79 AoV Mean Anurag. 1.23 m/s AoV Peak Grad 12.0 mmHg LVOT SV 76.25 mL AoV Mean Grad 6.6 mmHg AoV VTI 0.363 m AoV Area VTI 2.10 cm2 AoV Area/ BSA (VTI) 1.23 cm/m2 Mitral Valve MV DT 215 (160-240 msec) MV PHT 62 msec MV Area PHT 3.52 cm2 MV VTI 0.242 m MV Area VTI 3.15 (4.0-6.0 cm2) Pulmonary Valve PV Vmax 1.09 (0.5-1.5 m/s) RVOT Peak Gr. 2.69 mmHg PV Peak Grad 4.8 mmHg RVOT Mean Gr. 1.30 mmHg PV Mean Grad 2.0 mmHg RVOT VTI 0.183 m PV VTI 0.183 m RVOT Vmax 0.82 m/s Tricuspid Valve TR Peak Grad 26.8 mmHg TR Vmax 2.59 m/s RA Pressure 3.00 mmHg RVSP (TR) 29.9 mmHg
== END 2022-04-27 02:52 ==
LOC: DI 02:32
PROVIDERS: PCP Student in an Organized Health Care Education/Training Program; Visit Provider Student in an Organized Health Care Education/Training Program
DX: I10 Essential (primary) hypertension (principal); R06.09 Other forms of dyspnea
CPT/HCPCS: 93306

== ENCOUNTER 2022-05-03 00:08 | Outpatient (CLI) | payer MEDICARE, SELFPAY ==
--- NOTE | 2022-05-03 07:30 | DI.MAMMO_ITS ---
Exam(s) MAMMO SCREENING EXAM: MAMMO SCREENING CLINICAL HISTORY: screening,z12.39 TECHNIQUE: Mammograms were interpreted according to the usual protocol including computer analysis w [email or web address] ([email or web address]) CAD system, tomosynthesis and C-view imaging. COMPARISON: 2012 through 2020 FINDINGS: The breasts are composed of mainly fatty density , Breast Density category A. No suspicious masses or suspicious microcalcifications are seen. No skin thickening or abnormal axillary lymph nodes are seen. There has been no significant change from prior exams. IMPRESSION: BI-RADS Category 1, Negative mammogram Yearly screening mammography is recommended. Breast Density - Category A, fatty density. A negative radiographic report should not delay biopsy if a dominant or clinically suspicious mass is present. Up to ten percent of cancers are not identified on mammography. A negative report may reinforce clinical impression. Adenosis and dense breasts may obscure an underlying neoplasm. False positive reports average 6 to 10%. Patient will receive a letter notifying them of these results.
== END 2022-05-03 00:28 ==
LOC: DI 00:09
PROVIDERS: PCP Student in an Organized Health Care Education/Training Program; Visit Provider Student in an Organized Health Care Education/Training Program
DX: Z12.31 Encounter for screening mammogram for malignant neoplasm of breast (principal)
CPT/HCPCS: 77063; 77067

== ENCOUNTER 2022-07-02 06:58 | Day surgery (SDC) | payer MEDICARE, SELFPAY ==
--- NOTE | 2022-07-01 21:39 | HPE_ITS ---
Assessment and Plan Assessment and plan (1) Posterior subcapsular age-related cataract of left eye: Status: Acute Assessment and plan: Assessment: Visually significant cataract of the left eye. Plan: Cataract extraction with lens implantation of the left eye. (2) Nuclear age-related cataract, left eye: Status: Acute Assessment and plan: Assessment: Visually significant cataract of the left eye. Plan: Cataract extraction with lens implantation of the left eye. (3) Nuclear age-related cataract, right eye: Status: Acute Assessment and plan: Assessment: Visually significant cataract of the right eye. Plan: Cataract extraction with lens implantation of the right eye. (4) Posterior subcapsular age-related cataract, right eye: Status: Acute Assessment and plan: Assessment: Visually significant cataract of the right eye. Plan: Cataract extraction with lens implantation of the right eye. History of Present Illness History of Present Illness Chief Complaint: Progressive decreased vision both eyes Narrative: The patient is a 76-year-old lady with history of blurred vision in both eyes at both distance and near. She notes significant difficulty with glare. On examination she was noted to have moderate bilateral nuclear and posterior subcapsular cataracts. She is significantly symptomatic that she desires cataract surgery and attempt to improve and maximize her vision. Review of Systems All systems reviewed & are unremarkable except as noted in HPI and below PFSH All Active Problems Barretts esophagus (Acute) EGD q 3 yrs! per pt report .. (OR GI) Anxiety (Acute 11/24/12) Essential hypertension (Acute 12/15/12) Gastroesophageal reflux disease (Chronic) Gastric polyps per EGD 07/29 Barretts esophogus 07/[address] [place] [address] 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 Recommend Q3 month checks x1 yr, then Q6 months for 1 year, then yearly. Chronic nasal congestion (Acute) Postnasal drip (Acute) Neck pain on right side (Acute) Snoring (Acute) Dyspnea on minimal exertion (Acute) Colicky RUQ abdominal pain (Acute) Intermittent, x years .. Adenoma (Acute) Cystic, axillary (RT) .. [facility] TSH elevation (Acute) Nuclear age-related cataract, left eye (Acute) Posterior subcapsular age-related cataract of left eye (Acute) Nuclear age-related cataract, right eye (Acute) Posterior subcapsular age-related cataract, right eye (Acute) Medical History COVID-19 virus infection (10/2021) Family history of abdominal aortic aneurysm (AAA) (12/29/16) Increased body mass index (BMI) Inversion of nipple RIGHT INTRADUCTAL PAPILLOMA Left lower quadrant pain Pain of right heel Personal history of colonic polyps (02/17/09) neg path report of polyp done in [place] 2009 Right upper quadrant pain Surgical History (Updated 07/02/22 @ 07:21 by Brenda Pool) Appendectomy ID @ Ov cyst .. ~ 1970 History of unilateral oophorectomy Hx of colonoscopy Ligation of fallopian tube PROCEDURES UNILAT OOPHORECTOMY MOHS SURGERY OF RIGHT AXILLARY CYSTIC CARCINOMA; U/S OF BLADDER, LIVER, GALLBLADDER Status post appendectomy Status post tubal ligation Family History Mother , age 88 Essential hypertension Aneurysm Heart disease Hyperlipidemia Stroke HH (hiatus hernia) Bladder cancer Colon cancer Father , age 54 Essential hypertension Aneurysm Heart disease Stroke Sister Essential hypertension Heart disease Hyperlipidemia Asthma Skin cancer Brother Substance abuse Essential hypertension Heart disease Hyperlipidemia Alcohol abuse Throat cancer Maternal Grandfather , age 57 Aneurysm Heart disease Alcohol abuse Paternal Grandfather , age 74 Essential hypertension Heart disease Maternal Grandmother Diabetes Essential hypertension Heart disease Paternal Grandmother Essential hypertension Heart disease Maternal Aunt Aneurysm HH (hiatus hernia) Brother Substance abuse Essential hypertension Heart disease Alcohol abuse Brother Essential hypertension Heart disease Alcohol abuse Son Essential hypertension Alcohol abuse Daughter No problems noted. Daughter No problems noted. Other Family history of abdominal aortic aneurysm (AAA) Social History Smoking/Tobacco Use Status: Former Tobacco Use tobacco type: cigarettes Quit Date: 03/21/89 Second Hand Exposure: Yes Smoking risk assessment performed?: Yes Alcohol Intake: current Alcohol Intake frequency: holidays/special occasions only Alcohol type: wine Drug use: Never Substance use type: does not use Details: alcohol: unknown Adopted: No Caregiver/Support person: No Foster care: No Household members: spouse Housing: house Number of Children: 3 number of grandchildren: 4 Communication Needs: None Education Level: high school Pets and animals: No Sexually active: No Current gender identity: female What is your relationship status?: How often do you talk on the phone with friends or family?: three or more times per week How often do you get together with friends or relatives?: three or more times per week How often do you attend yazidism or mormonism services?: 1-3 times per year Do you belong to any clubs or organized social groups?: no Panel score (0-1 are the most socially isolated patients): 2 What type of physical activity do you participate in: walking Duration: < 15 minutes/day Frequency: 3-4 times per week Isadora/Orthodox: Gnosticism Special isadora needs: No Seatbelt use: always Helmet use: No Drive intox or ride w/intox entry driver operator: No Do you feel safe at home: Yes Do you feel safe in your relationship?: Yes Victim of physical abuse: No Victim of emotional abuse: No Victim of sexual abuse: No Would you like helpful sources: No Meds Allergies and Home Medications Allergies Allergy/AdvReac Type Severity Reaction Status Date / Time Penicillins Allergy Mild SKIN RASH Verified 07/02/22 07:17 amoxicillin Allergy Unknown HIVES Verified 07/02/22 07:17 metronidazole Allergy Heart Verified 07/02/22 07:17 racing chlorthalidone AdvReac Intermediate Other (See Unverified 07/02/22 07:17 Comment) ciprofloxacin [From Cipro] AdvReac Intermediate Muscle Verified 07/02/22 07:17 spasms in legs ciprofloxacin HCl AdvReac Intermediate Muscle Verified 07/02/22 07:17 [From Cipro] spasms in legs doxycycline AdvReac Unknown ANXIETY Verified 07/02/22 07:17 ezetimibe AdvReac Unknown Verified 07/02/22 07:17 Fish Containing Products AdvReac Unknown Fish Oil Verified 07/02/22 07:17 niacin AdvReac Unknown Verified 07/02/22 07:17 Sulfa (Sulfonamide AdvReac Unknown GI UPSET Verified 07/02/22 07:17 Antibiotics) HMG-COA REDUCTASE INHIBITORS AdvReac Unknown Uncoded 07/01/22 15:54 Home Medications Medication Instructions Recorded Confirmed Type aspirin 81 mg tablet,delayed 81 mg PO DAILY 07/31/12 07/02/22 History release (Aspir-) omeprazole 20 mg-sodium 1 cap PO DAILY 11/14/17 07/02/22 History bicarbonate 1.1 gram capsule (Zegerid) acetaminophen 650 mg 650 mg PO Q8H 08/15/18 07/01/22 History tablet,extended release (Tylenol Arthritis Pain) fluticasone propionate 50 2 spray intranasal DAILY 30 days 10/05/21 07/02/22 Rx mcg/actuation nasal #16 grams spray,suspension (Flonase Allergy Relief) cetirizine 10 mg tablet (Zyrtec) 10 mg PO DAILY 12/21/21 07/02/22 History cholecalciferol (vitamin D3) 25 2,000 unit PO DAILY 12/21/21 07/02/22 History mcg (1,000 unit) tablet cranberry extract 250 mg capsule 250 mg PO DAILY 03/18/22 07/02/22 History alprazolam 0.25 mg tablet 0.25 mg PO DAILY PRN anxiety #10 04/19/22 07/02/22 Rx tabs metoprolol tartrate 100 mg tablet See Rx Instructions PO BID #135 04/19/22 07/02/22 Rx tabs Exam Eyes Other: Most recent ocular examination is significant for uncorrected visual acuity of 2040 in each eye. Intraocular pressure is 16 OD, 14 OS. Extraocular motility is normal. Slit-lamp examination is significant for some misdirected lashes on the right lower lid. Moderate bilateral nuclear and posterior subcapsular cataracts are present OU. Dilated funduscopic examination reveals disc cupping of 0.2 OU with normal vessels, macula, peripheral retina and vitreous. Resp Auscultation: clear to auscultation bilaterally Cardio Rate: regular rate Rhythm: regular rhythm
[2022-07-02] MEDS: Tropicam./Phenyleph. (1/2.5%) 5 ML BTL OS ×3 (07:24→07:36)
[2022-07-02 07:25] VITALS: BP 184/78; PULSE 65; RESP 16; TEMP 36.2; O2SAT 98
--- NOTE | 2022-07-02 07:32 | ANES.PREOP_ITS ---
General Info Date of Service Date Performed: 07/02/22 Height: 5 ft Weight: 75.4 kg Body Mass Index (BMI): 32.4 Surgical Procedure: Operation Date: 07/02/22 08:40 Proposed Procedure Side Surgeon p Cataract Extraction with IOL Implant Left Tien Barboza MD Meds Allergies and Home Medications Allergies Allergy/AdvReac Type Severity Reaction Status Date / Time Penicillins Allergy Mild SKIN RASH Verified 07/02/22 07:17 amoxicillin Allergy Unknown HIVES Verified 07/02/22 07:17 metronidazole Allergy Heart Verified 07/02/22 07:17 racing chlorthalidone AdvReac Intermediate Other (See Unverified 07/02/22 07:17 Comment) ciprofloxacin [From Cipro] AdvReac Intermediate Muscle Verified 07/02/22 07:17 spasms in legs ciprofloxacin HCl AdvReac Intermediate Muscle Verified 07/02/22 07:17 [From Cipro] spasms in legs doxycycline AdvReac Unknown ANXIETY Verified 07/02/22 07:17 ezetimibe AdvReac Unknown Verified 07/02/22 07:17 Fish Containing Products AdvReac Unknown Fish Oil Verified 07/02/22 07:17 niacin AdvReac Unknown Verified 07/02/22 07:17 Sulfa (Sulfonamide AdvReac Unknown GI UPSET Verified 07/02/22 07:17 Antibiotics) HMG-COA REDUCTASE INHIBITORS AdvReac Unknown Uncoded 07/01/22 15:54 Home Medication Medication Instructions Recorded aspirin 81 mg tablet,delayed 81 mg PO DAILY 07/31/12 release (Aspir-) omeprazole 20 mg-sodium 1 cap PO DAILY 11/14/17 bicarbonate 1.1 gram capsule (Zegerid) acetaminophen 650 mg 650 mg PO Q8H 08/15/18 tablet,extended release (Tylenol Arthritis Pain) fluticasone propionate 50 2 spray intranasal DAILY 30 days 10/05/21 mcg/actuation nasal #16 grams spray,suspension (Flonase Allergy Relief) cetirizine 10 mg tablet (Zyrtec) 10 mg PO DAILY 12/21/21 cholecalciferol (vitamin D3) 25 2,000 unit PO DAILY 12/21/21 mcg (1,000 unit) tablet cranberry extract 250 mg capsule 250 mg PO DAILY 03/18/22 alprazolam 0.25 mg tablet 0.25 mg PO DAILY PRN anxiety #10 04/19/22 tabs metoprolol tartrate 100 mg tablet See Rx Instructions PO BID #135 04/19/22 tabs Current Visit Medications: Current Medications Generic Name Dose Route Start Last Admin Trade Name Freq PRN Reason Stop Dose Admin Acetaminophen 1,000 mg 07/02/22 06:00 Acetaminophen 500 Mg Tab PO Q4H PRN PRN Miscellaneous Medication 0 ml 07/02/22 06:00 07/02/22 07:30 Tropicam./Phenyleph. (1/2.5%) 5 Ml Btl OS 1 drp DIRECTED BEATA Administration Miscellaneous Medication 0 ml 07/02/22 06:00 Prednisolone 1%, Moxifloxacin 0.5%, Nepafenac 0.1% 5ml Btl OS DIRECTED BEATA Tetracaine HCl 0 ml 07/02/22 06:00 Tetracaine 0.5% 4 Ml Btl OS DIRECTED BEATA PFSH Active Problems Active Problems: Problem Status Onset Code Barretts esophagus Anxiety 11/24/12 F41.9 Essential hypertension 12/15/12 I10 Gastroesophageal reflux disease K21.9 Hyperlipidemia E78.5 Multiple drug allergies Z88.9 Obstructive sleep apnea syndrome G47.33 Osteoporosis M81.0 Carcinoma 09/29/11 C80.1 History of tobacco use Z87.891 Gastric polyp K31.7 Vaginitis N76.0 Tongue lesion K14.8 Halitosis R19.6 Hepatic steatosis K76.0 Vertigo R42 Axillary adenopathy R59.0 Melanoma C43.9 Chronic nasal congestion R09.81 Postnasal drip R09.82 Neck pain on right side M54.2 Snoring R06.83 Dyspnea on minimal exertion R06.09 Colicky RUQ abdominal pain R10.11 Adenoma D36.9 TSH elevation R79.89 Nuclear age-related cataract, left eye H25.12 Posterior subcapsular age-related cataract of left eye H25.042 Nuclear age-related cataract, right eye H25.11 Posterior subcapsular age-related cataract, right eye H25.041 Medical History Medical History COVID-19 virus infection (10/2021) Family history of abdominal aortic aneurysm (AAA) (12/29/16) Increased body mass index (BMI) Inversion of nipple RIGHT INTRADUCTAL PAPILLOMA Left lower quadrant pain Pain of right heel Personal history of colonic polyps (02/17/09) neg path report of polyp done in [place] 2009 Right upper quadrant pain Medical History Comments:: Pt. reports most procedures caused PONV Surgical History Surgical History (Updated 07/02/22 @ 07:21 by Brenda Pool) Appendectomy ID @ Ov cyst .. ~ 1970 History of unilateral oophorectomy Hx of colonoscopy Ligation of fallopian tube PROCEDURES UNILAT OOPHORECTOMY MOHS SURGERY OF RIGHT AXILLARY CYSTIC CARCINOMA; U/S OF BLADDER, LIVER, GALLBLADDER Status post appendectomy Status post tubal ligation Tobacco Smoking/Tobacco Use Status: Former Tobacco Use Second hand exposure: Yes Alcohol Alcohol Intake: current Alcohol intake frequency: holidays/special occasions only Alcohol type: wine Substance Use Substance use: Never Substance use type: does not use Details: alcohol: unknown Vital Signs and Lab Results Vital Signs Most Recent Vital Signs in EMR: Most Recent Vital Signs Temp Pulse Resp BP Pulse Ox 36.2 C L 65 16 184/78 H 98 07/02/22 07:25 07/02/22 07:25 07/02/22 07:25 07/02/22 07:25 07/02/22 07:25 Lab Results Blood Type / Crossmatch: No Data to Display Complete Blood Count: No Data to Display Complete Metabolic Panel: No Data to Display Liver Function Panel: No Data to Display Coagulation Panel: No Data to Display Cardiac Panel: No Data to Display Arterial Blood Gas: No Data to Display Venous Blood Gas: No Data to Display Pancreas Panel: No Data to Display Thyroid Panel: No Data to Display Infectious Disease: No Data to Display Blood Cultures: No Data to Display Toxicology Panel: No Data to Display Imaging and Studies Imaging and Studies Study information below may be from another EMR and interpreted by another provider. Please see original notes in EMR for more complete details. EKG Summary: Conclusion Sinus rhythm...normal P axis, V-rate 60- 99 Nonspecific T abnormalities, anterior leads...T <-0.10mV, V2-V4 09/09 Echocardiogram Summary: Conclusion 05/13 Normal left ventricular wall thickness and chamber size. Estimated ejection f raction is 60%. Wall motion is normal Normal right ventricular size and systolic function Both atria are normal in size There is no structural or hemodynamically significant valvular disease Estimated right ventricular systolic pressure is 30 mmHg Anesthesia Assessment and Plan Anesthesia History Personal History: PONV Family History: No Family History of Anesthesia Complications Exercise Tolerance Exercise Tolerance: Metabolic Equivalents>4 Cardiac & Pulmonary Exam Cardiac Exam: Normal S1/S2 Heart Sounds Pulmonary Exam: Clear Bilateral Breath Sounds Implantable Cardiac Device Does patient have a Pacemaker or an ICD?: No Airway Exam Known Difficult Airway: No Mallampati Class: 3 Mouth Opening: Normal (> 3cm) Thyromental Distance: Greater than 3 cm Neck Range of Motion: Full ROM Neck Circumference: Normal Teeth Condition: Normal Dentition ASA Classification ASA Score: ASA 2 Emergency Case?: No NPO Status NPO Status: NPO Clears >2 hours, Solids >8 hours Anesthesia Plan Resuscitation Status: Full Code Anesthesia Technique: MAC Anesthesia Airway Planned: Natural Airway Monitors Used: Standard Monitors Preoperative Comments:: Alon GERDLoreto DUFFY
[2022-07-02 08:08] VITALS: BMI 32.4
[2022-07-02] MEDS: Balanced Salt Soln.-PLUS 500 ML BAG (08:25)
[2022-07-02] MEDS: Tetracaine 0.5% 4 ML BTL OS (08:25)
[2022-07-02] MEDS: Duovisc Viscoelastic System EACH 1 EACH (08:26)
[2022-07-02] MEDS: Lidocaine 1% Pres-Free 5 ML VIAL (08:26)
[2022-07-02] MEDS: Phenylephrine/Lidocaine (15/10) MG/ML 1 ML VIAL (08:27)
[2022-07-02] MEDS: Povidone-Iodine Ophth 30 ML BTL (08:27)
[2022-07-02 08:41] VITALS: BP 160/89; PULSE 73; RESP 16; TEMP 36.5; O2SAT 95
--- NOTE | 2022-07-02 08:41 | W.PM.DSUDISC ---
Date of service: 07/02/22 Time of Service: 08:41 Discharge Plan Disposition Patient Disposition: Home Discharge Details Attending Provider: Tien Barboza Primary Care Provider: Antoinette Diaz Home Meds and New Rx's Prescriptions: No Action acetaminophen [Tylenol Arthritis Pain] 650 mg tablet extended release 650 mg PO Q8H fluticasone propionate [Flonase Allergy Relief] 50 mcg/actuation spray,suspension 2 spray intranasal DAILY 30 Days Qty: 16 6RF Rx Instructions: administer into each nostril cetirizine [Zyrtec] 10 mg tablet 10 mg PO DAILY cranberry extract 250 mg capsule 250 mg PO DAILY Rx Instructions: administer with a meal metoprolol tartrate 100 mg tablet See Rx Instructions PO BID Qty: 135 3RF Rx Instructions: t 0.5 tab qam and t1 tab qhs orally twice a day; alprazolam 0.25 mg tablet 0.25 mg PO DAILY PRN (Reason: anxiety) Qty: 10 0RF Rx Instructions: Trial HALF tablet for panic episodes aspirin [Aspir-81] 81 MG tablet,delayed release (DR/EC) 81 mg PO DAILY omeprazole-sodium bicarbonate [Zegerid] 1 EACH capsule 1 cap PO DAILY cholecalciferol (vitamin D3) 25 mcg (1,000 unit) tablet 2,000 unit PO DAILY Discharge Instructions Stand Alone Forms: Post-op Topical Cataract, Kaleb Arboleda (DSU) Discharge Orders Discharge Orders: Discharge Order (Routine); Ordered 07/02/22 Ordered By: Tien Barboza DS: Diagnosis Discharge Diagnosis (1) Posterior subcapsular age-related cataract of left eye: Status: Resolved (2) Nuclear age-related cataract, left eye: Status: Resolved
--- NOTE | 2022-07-02 08:42 | ROE_ITS ---
Date of service: 07/02/22 Time of Service: 08:42 Operative Note Operative Note DATE OF PROCEDURE: 07/02/22 POST-OP DIAGNOSIS: same PROCEDURE: Cataract extraction using phacoemulsification with intraocular lens implant, left eye SURGEON: Tien Barboza ANESTHESIA TYPE: Local By Surgeon and MAC Refer to Anesthesia Record PATHOLOGY: none sent COMPLICATIONS: None Patient was transported to: same day Patient's condition: stable Implants: Aryan and Aryan Tecnis Eyhance [id number] Indications: Progressive decreased vision due to cataract, left eye Procedure Description: CATARACT SURGERY OPERATIVE REPORT PREOPERATIVE DIAGNOSIS: 1. Nuclear/posterior subcapsular cataract, left eye POSTOPERATIVE DIAGNOSIS: Same OPERATION: 1. Cataract extraction using phacoemulsification with posterior chamber intraocular lens implant, left eye. IOL: IOL Test Car Driver/Model: Aryan & Aryan Tecnis Eyhance [id number] IOL Power: + 23.0 diopters IOL Serial Number: [id number] Optic Diameter: 6.0 mm Haptic/Overall Diameter: 13.0 mm PHACO INFO: GeoffreyThe Easou Technologyurion Vision System with OZil and Active Fluidics Cumulative Dispersed Energy (CDE): 4.66 seconds SURGEON: Tien Barboza MD, SU ANESTHESIA: Monitored A [facility] (MAC), with local sub-tenon's anesthetic infiltration COMPLICATIONS: None SPECIMENS: None INDICATIONS FOR PROCEDURE: The patient is a 76-year-old lady with history of diminished visual acuity in her left eye secondary to the development of nuclear/posterior subcapsular cataract. She is significantly symptomatic that she desires cataract surgery and attempt to improve and maximize her vision. The option of cataract surgery was offered to the patient and she wished to proceed. See clinical chart for detailed information. PROCEDURE: The correct surgical eye was identified and marked as the left eye and the pupil was dilated in the preoperative area using mydriatics and cycloplegics. The dilated pupil size was 8.0 mm. Oral sedation was administered in the form of an Imprimis MKO Melt (midazolam 3mg/ketamine 25mg/ondansetron 2mg). The patient was brought to the operating room where cardiopulmonary monitoring was instituted and surgical time-out was performed, confirming the correct operative eye and IOL power. Topical anesthesia was administered and ophthalmic povidone-iodine 5% was instilled into the conjunctival fornices. Lidocaine gel was applied to the cornea and the niru-ocular area was prepped with Betadine 10% solution and draped in the usual sterile fashion for intraocular surgery, including an aperture drape. A Tegaderm transparent film dressing was cut in half and used to cover the lashes and lid margins. Care was taken to sequester the lashes and lid margins under the Tegaderm dressing. A lid speculum was placed between the lids of the operative eye and the Geoffrey LuxOR Revalia operating microscope was maneuvered into position. Johnathan scissors were then used to make a conjunctival buttonhole approximately 6mm posterior to the limbus in the inferonasal quadrant. Blunt dissection was carried out to expose bare sclera, and a blunt-tipped sub-tenon?s anesthesia cannula was introduced and passed posteriorly along the globe where non- preserved plain lidocaine was injected into posterior sub-Tenon?s space. A sideport knife was used to make a paracentesis port superiorly/superiortemporally. Intraocular phenylephrine/lidocaine was injected int the anterior chamber.. The anterior chamber was filled with viscoelastic. A keratome knife was used to construct a 2-plane near-clear corneal tunnel extending 2.0mm into clear cornea temporally. A flap was raised on the anterior capsule and capsulorhexis forceps were used to complete a continuous curvilinear capsulorhexis of 5.5 mm. Balanced salt solution was then used to perform cortical cleaving hydrodissect ion and nuclear hydrodelineation until the lens could be freely rotated within the capsular bag. The lens nucleus was then disassembled and removed within the capsular bag and iris plane using phacoemulsification. Residual cortical material was removed using the 45-degree angled silicone I/A tip with 0.3mm port. The posterior capsule was carefully polished to remove as much residual lens epithelial cells as safely possible. The capsular bag was then inflated and the anterior chamber deepened with viscoelastic. The lens implant described above was inserted into the capsular bag using the Aryan and Aryan Simplicity pre-loaded injector. . A Kuglen hook was used to dial the IOL into position. Residual viscoelastic was then removed first from posterior to the IOL, then from the anterior chamber using the I/A handpiece. The lens implant was noted to center nicely within the capsular bag. The incisions were stromally hydrated, and the anterior chamber was reformed using BSS. Then 0.5cc of moxifloxacin 1.0mg/ml were injected into the capsular bag and anterior chamber. The incisions were checked with a Weck spear and found to be secure. Several drops of ophthalmic povidone-iodine 5% were then applied to the eye followed by two drops of Imprimis combination prednisolone/moxifloxacin/nepafenac solution. The drapes were removed and a clear plastic protective eye shield was placed over the eye. The patient was then returned to Same Day Surgery in stable condition.
--- NOTE | 2022-07-02 08:54 | W.ANESPOSTOP ---
Postoperative Evaluation Date, Time and Location Date Performed: 07/02/22 Time Performed: 08:54 Patient Location: Day Surgery Unit Vital Signs Most Recent Imported Vital Signs: Most Recent Vital Signs Temp Pulse Resp BP Pulse Ox 36.5 C 73 16 160/89 H 95 07/02/22 08:41 07/02/22 08:41 07/02/22 08:41 07/02/22 08:41 07/02/22 08:41 Pain Score Most Recent Pain Score: Most Recent Pain Score Pain Level 0 07/02/22 08:41 Assessment Mental Status: Awake (Alert & Oriented to Patient Baseline) Airway and Respiratory Function: Patent airway with normal (patient baseline) respiratory exam Cardiovascular Function: Hemodynamically Stable Hydration Status: Adequately Hydrated Nausea & Vomiting: No Nausea or Vomiting Pain: Pt. Denies Any Pain Peripheral Nerve Block: Patient did not receive a nerve block
[2022-07-02 09:06] VITALS: BP 138/68; PULSE 72; RESP 16; TEMP 36.6; O2SAT 96
== END 2022-07-02 09:10 | disposition home or self-care (01) ==
LOC: SUR 06:58
PROVIDERS: PCP Student in an Organized Health Care Education/Training Program; Visit Provider Ophthalmology
PROC: (CPT 66984; principal; 2022-07-02 08:30)
DX: H25.042 Posterior subcapsular polar age-related cataract, left eye (principal); H25.12 Age-related nuclear cataract, left eye; H25.11 Age-related nuclear cataract, right eye; K21.9 Gastro-esophageal reflux disease without esophagitis; G47.33 Obstructive sleep apnea (adult) (pediatric)
CPT/HCPCS: 66984; V2632

== ENCOUNTER 2022-07-16 09:38 | Day surgery (SDC) | payer MEDICARE, SELFPAY ==
[2022-07-16 09:58] VITALS: BP 178/64; PULSE 57; RESP 18; TEMP 37.1; O2SAT 98
[2022-07-16] MEDS: Tropicam./Phenyleph. (1/2.5%) 5 ML BTL OD ×3 (10:00→10:10)
--- NOTE | 2022-07-16 10:12 | W.ANESPRE ---
General Info Date of Service Date Performed: 07/16/22 Height: 5 ft Weight: 75.4 kg Body Mass Index (BMI): 32.4 Surgical Procedure: Operation Date: 07/16/22 12:40 Proposed Procedure Side Surgeon p Cataract Extraction with IOL Implant Right Tien Barboza MD Meds Allergies and Home Medications Allergies Allergy/AdvReac Type Severity Reaction Status Date / Time Penicillins Allergy Mild SKIN RASH Verified 07/16/22 09:54 amoxicillin Allergy Unknown HIVES Verified 07/16/22 09:54 metronidazole Allergy Heart Verified 07/16/22 09:54 racing chlorthalidone AdvReac Intermediate Other (See Verified 07/16/22 09:54 Comment) ciprofloxacin [From Cipro] AdvReac Intermediate Muscle Verified 07/16/22 09:54 spasms in legs ciprofloxacin HCl AdvReac Intermediate Muscle Verified 07/16/22 09:54 [From Cipro] spasms in legs doxycycline AdvReac Unknown ANXIETY Verified 07/16/22 09:54 ezetimibe AdvReac Unknown Verified 07/16/22 09:54 Fish Containing Products AdvReac Unknown Fish Oil Verified 07/16/22 09:54 niacin AdvReac Unknown Verified 07/16/22 09:54 Sulfa (Sulfonamide AdvReac Unknown GI UPSET Verified 07/16/22 09:54 Antibiotics) HMG-COA REDUCTASE INHIBITORS AdvReac Unknown Uncoded 07/16/22 09:54 Home Medication Medication Instructions Recorded aspirin 81 mg tablet,delayed 81 mg PO DAILY 07/31/12 release (Aspir-) omeprazole 20 mg-sodium 1 cap PO DAILY 11/14/17 bicarbonate 1.1 gram capsule (Zegerid) acetaminophen 650 mg 650 mg PO Q8H 08/15/18 tablet,extended release (Tylenol Arthritis Pain) fluticasone propionate 50 2 spray intranasal DAILY 30 days 10/05/21 mcg/actuation nasal #16 grams spray,suspension (Flonase Allergy Relief) cetirizine 10 mg tablet (Zyrtec) 10 mg PO DAILY 12/21/21 cholecalciferol (vitamin D3) 25 2,000 unit PO DAILY 12/21/21 mcg (1,000 unit) tablet cranberry extract 250 mg capsule 250 mg PO DAILY 03/18/22 alprazolam 0.25 mg tablet 0.25 mg PO DAILY PRN anxiety #10 04/19/22 tabs metoprolol tartrate 100 mg tablet See Rx Instructions PO BID #135 04/19/22 tabs levothyroxine 25 mcg tablet 25 mcg PO DAILY #90 tabs 07/15/22 (Levo-T) Current Visit Medications: Current Medications Generic Name Dose Route Start Last Admin Trade Name Freq PRN Reason Stop Dose Admin Acetaminophen 1,000 mg 07/16/22 06:00 Acetaminophen 500 Mg Tab PO Q4H PRN PRN Miscellaneous Medication 0 ml 07/16/22 06:00 07/16/22 10:05 Tropicam./Phenyleph. (1/2.5%) 5 Ml Btl OD 1 drp DIRECTED BEATA Administration Miscellaneous Medication 0 ml 07/16/22 06:00 Prednisolone 1%, Moxifloxacin 0.5%, Nepafenac 0.1% 5ml Btl OD DIRECTED BEATA Tetracaine HCl 0 ml 07/16/22 06:00 Tetracaine 0.5% 4 Ml Btl OD DIRECTED BEATA PFSH Active Problems Active Problems: Problem Status Onset Code Barretts esophagus Anxiety 11/24/12 F41.9 Essential hypertension 12/15/12 I10 Gastroesophageal reflux disease K21.9 Hyperlipidemia E78.5 Multiple drug allergies Z88.9 Obstructive sleep apnea syndrome G47.33 Osteoporosis M81.0 Carcinoma 09/29/11 C80.1 History of tobacco use Z87.891 Gastric polyp K31.7 Vaginitis N76.0 Tongue lesion K14.8 Halitosis R19.6 Hepatic steatosis K76.0 Vertigo R42 Axillary adenopathy R59.0 Melanoma C43.9 Chronic nasal congestion R09.81 Postnasal drip R09.82 Neck pain on right side M54.2 Snoring R06.83 Dyspnea on minimal exertion R06.09 Colicky RUQ abdominal pain R10.11 Adenoma D36.9 TSH elevation R79.89 Nuclear age-related cataract, left eye H25.12 Posterior subcapsular age-related cataract of left eye H25.042 Nuclear age-related cataract, right eye H25.11 Posterior subcapsular age-related cataract, right eye H25.041 Medical History Medical History COVID-19 virus infection (10/2021) Family history of abdominal aortic aneurysm (AAA) (12/29/16) Family history of hypertension Increased body mass index (BMI) Inversion of nipple RIGHT INTRADUCTAL PAPILLOMA Left lower quadrant pain Pain of right heel Personal history of colonic polyps (02/17/09) neg path report of polyp done in [place] 2009 Right upper quadrant pain Medical History Comments:: Pt. reports most procedures caused PONV and slow to wake up Surgical History Surgical History Appendectomy ID @ Ov cyst .. ~ 1970 History of unilateral oophorectomy Hx of colonoscopy Ligation of fallopian tube PROCEDURES UNILAT OOPHORECTOMY MOHS SURGERY OF RIGHT AXILLARY CYSTIC CARCINOMA; U/S OF BLADDER, LIVER, GALLBLADDER Status post appendectomy Status post tubal ligation Tobacco Smoking/Tobacco Use Status: Former Tobacco Use Passive smoking exposure: Yes Second hand exposure: Yes Alcohol Alcohol Intake: current Alcohol intake frequency: holidays/special occasions only Alcohol type: wine Substance Use Substance use: Never Substance use type: does not use Details: alcohol: unknown Vital Signs and Lab Results Vital Signs Most Recent Vital Signs in EMR: Most Recent Vital Signs Temp Pulse Resp BP Pulse Ox 37.1 C 57 L 18 178/64 H 98 07/16/22 09:58 07/16/22 09:58 07/16/22 09:58 07/16/22 09:58 07/16/22 09:58 Lab Results Blood Type / Crossmatch: No Data to Display Complete Blood Count: No Data to Display Complete Metabolic Panel: No Data to Display Liver Function Panel: No Data to Display Coagulation Panel: No Data to Display Cardiac Panel: No Data to Display Arterial Blood Gas: No Data to Display Venous Blood Gas: No Data to Display Pancreas Panel: No Data to Display Thyroid Panel: No Data to Display Infectious Disease: No Data to Display Blood Cultures: No Data to Display Toxicology Panel: No Data to Display Imaging and Studies Imaging and Studies Study information below may be from another EMR and interpreted by another provider. Please see original notes in EMR for more complete details. EKG Summary: Conclusion Sinus rhythm...normal P axis, V-rate 60- 99 Nonspecific T abnormalities, anterior leads...T <-0.10mV, V2-V4 09/09 Echocardiogram Summary: Conclusion 05/13 Normal left ventricular wall thickness and chamber size. Estimated ejection fraction is 60%. Wall motion is normal Normal right ventricular size and systolic function Both atria are normal in size There is no structural or hemodynamically significant valvular disease Estimated right ventricular systolic pressure is 30 mmHg Anesthesia Assessment and Plan Anesthesia History Personal History: PONV Family History: No Family History of Anesthesia Complications Exercise Tolerance Exercise Tolerance: Metabolic Equivalents>4 Pertinent Negatives Pertinent Negatives: No Symptoms of GERD Cardiac & Pulmonary Exam Cardiac Exam: Normal S1/S2 Heart Sounds Pulmonary Exam: Clear Bilateral Breath Sounds Implantable Cardiac Device Does patient have a Pacemaker or an ICD?: No Airway Exam Known Difficult Airway: No Mallampati Class: 3 Mouth Opening: Normal (> 3cm) Thyromental Distance: Greater than 3 cm Neck Range of Motion: Full ROM Neck Circumference: Normal Teeth Condition: Normal Dentition ASA Classification ASA Score: ASA 2 Emergency Case?: No NPO Status NPO Status: NPO Clears >2 hours, Solids >8 hours Anesthesia Plan Resuscitation Status: Full Code Anesthesia Technique: MAC Anesthesia Airway Planned: Natural Airway Monitors Used: Standard Monitors
[2022-07-16 10:40] VITALS: BMI 32.4
[2022-07-16] MEDS: Tetracaine 0.5% 4 ML BTL OD (11:06)
[2022-07-16] MEDS: Balanced Salt Soln.-PLUS 500 ML BAG (11:07)
[2022-07-16] MEDS: Duovisc Viscoelastic System EACH 1 EACH (11:07)
[2022-07-16] MEDS: Lidocaine 1% Pres-Free 5 ML VIAL (11:07)
[2022-07-16] MEDS: Phenylephrine/Lidocaine (15/10) MG/ML 1 ML VIAL (11:08)
[2022-07-16] MEDS: Povidone-Iodine Ophth 30 ML BTL (11:08)
[2022-07-16 11:23] VITALS: BP 148/60; PULSE 58; RESP 18; TEMP 36.3; O2SAT 97
--- NOTE | 2022-07-16 11:23 | W.PM.DSUDISC ---
Date of service: 07/16/22 Time of Service: 11:23 Discharge Plan Disposition Patient Disposition: Home Discharge Details Attending Provider: Tien Barboza Primary Care Provider: Antoinette Diaz Home Meds and New Rx's Prescriptions: No Action acetaminophen [Tylenol Arthritis Pain] 650 mg tablet extended release 650 mg PO Q8H fluticasone propionate [Flonase Allergy Relief] 50 mcg/actuation spray,suspension 2 spray intranasal DAILY 30 Days Qty: 16 6RF Rx Instructions: administer into each nostril cetirizine [Zyrtec] 10 mg tablet 10 mg PO DAILY cranberry extract 250 mg capsule 250 mg PO DAILY Rx Instructions: administer with a meal metoprolol tartrate 100 mg tablet See Rx Instructions PO BID Qty: 135 3RF Rx Instructions: t 0.5 tab qam and t1 tab qhs orally twice a day; alprazolam 0.25 mg tablet 0.25 mg PO DAILY PRN (Reason: anxiety) Qty: 10 0RF Rx Instructions: Trial HALF tablet for panic episodes levothyroxine [Levo-T] 25 mcg tablet 25 mcg PO DAILY Qty: 90 1RF Rx Instructions: Trial to start for HYPOthyroid (goal; 50mcg) aspirin [Aspir-81] 81 MG tablet,delayed release (DR/EC) 81 mg PO DAILY omeprazole-sodium bicarbonate [Zegerid] 1 EACH capsule 1 cap PO DAILY cholecalciferol (vitamin D3) 25 mcg (1,000 unit) tablet 2,000 unit PO DAILY Discharge Instructions Stand Alone Forms: Post-op Topical CataractKaleb (DSU) Discharge Orders Discharge Orders: Discharge Order (Routine); Ordered 07/16/22 Ordered By: Tien Barboza DS: Diagnosis Discharge Diagnosis (1) Posterior subcapsular age-related cataract, right eye: Status: Resolved (2) Nuclear age-related cataract, right eye: Status: Resolved
--- NOTE | 2022-07-16 11:24 | ROE_ITS ---
Date of service: 07/16/22 Time of Service: 11:24 Operative Note Operative Note DATE OF PROCEDURE: 10/06/20 PRE-OP DIAGNOSIS: Nuclear/cortical cataract, right eye POST-OP DIAGNOSIS: same PROCEDURE: Cataract extraction using phacoemulsification with intraocular lens implant, right eye SURGEON: Tien Barboza ANESTHESIA TYPE: Local By Surgeon and MAC Refer to Anesthesia Record ESTIMATED BLOOD LOSS: 0 PATHOLOGY: none sent COMPLICATIONS: None Patient was transported to: same day Patient's condition: stable Implants: Aryan & Aryan Tecnis Eyhance [id number] Indications: Progressive visual loss due to cataract, right eye Procedure Description: CATARACT SURGERY OPERATIVE REPORT PREOPERATIVE DIAGNOSIS: 1. Nuclear/cortical cataract, right eye POSTOPERATIVE DIAGNOSIS: Same OPERATION: 1. Cataract extraction using phacoemulsification with posterior chamber intraocular lens implant, right eye. IOL: IOL Head Start Coordinator/Model: Aryan & Aryan Tecnis Eyhance DIB00 IOL Power: + 22.5 diopters IOL Serial Number: [id number] Optic Diameter: 6.0mm Haptic/Overall Diameter: 13.0mm PHACO INFO: GeoffreyCasualingurion Vision System with OZil and Active Fluidics Cumulative Dispersed Energy (CDE): 6.50 seconds SURGEON: Tien Barboza MD, SU ANESTHESIA: Monitored Anesthesia Care (MAC), with local sub-tenon's anesthetic infiltration COMPLICATIONS: None SPECIMENS: None INDICATIONS FOR PROCEDURE: The patient is a 77-year-old lady with history of diminished visual acuity in both eyes secondary to the development of bilateral nuclear/cortical cataract. She has already undergone cataract surgery in the left eye and is doing well postoperatively. She now presents for cataract surgery in the right eye. See office notes for detailed information. PROCEDURE: The correct surgical eye was identified and marked as the right eye and the pupil was dilated in the preoperative area using mydriatics and cycloplegics. The dilated pupil size was 6.0 mm. Oral sedation was administered in the form of one half of an Imprimis MKO Melt (midazolam 3mg/ketamine 25mg/ondansetron 2mg). The patient was brought to the operating room where cardiopulmonary monitoring was instituted and surgical time-out was performed, confirming the correct operative eye and IOL power. Topical anesthesia was administered and ophthalmic povidone-iodine 5% was instilled into the conjunctival fornices. Lidocaine gel was applied to the cornea and the niru-ocular area was prepped with Betadine 10% solution and draped in the usual sterile fashion for intraocular surgery, including an aperture drape. A Tegaderm transparent film dressing was cut in half and used to cover the lashes and lid margins. Care was taken to sequester the lashes and lid margins under the Tegaderm dressing. A lid speculum was placed between the lids of the operative eye and the Geoffrey LuxOR Revalia operating microscope was maneuvered into position. Johnathan scissors were then used to make a conjunctival buttonhole approximately 6mm posterior to the limbus in the inferonasal quadrant. Blunt dissection was carried out to expose bare sclera, and a blunt-tipped sub-tenon?s anesthesia cannula was introduced and passed posteriorly along the globe where non-preserved plain lidocaine was injected into posterior sub-Tenon?s space. A sideport knife was used to make a paracentesis port inferotemporally. Intraocular phenylephrine/lidocaine was injected into the anterior chamber. The anterior chamber was filled with viscoelastic. A keratome knife was used to construct a 2-plane near-clear corneal tunnel extending 2.0mm into clear cornea superiortemporally. A flap was raised on the anterior capsule and capsulorhexis forceps were used to complete a continuous curvilinear capsulorhexis of 5.0 mm. Balanced salt solution was then used to perform cortical cleaving hydrodissection and nuclear hydrodelineation until the lens could be freely rotated within the capsular bag. The lens nucleus was then disassembled and removed within the capsular bag and iris plane using phacoemulsification. Residual cortical material was removed using the I/A handpiece. The posterior capsule was carefully polished to remove as much residual lens epithelial cells as safely possible. The capsular bag was then inflated and the anterior chamber deepened with viscoelastic. The lens implant described above was inserted into the capsular bag using the Aryan and Grace Simplicity pre-loaded injector. A Kuglen hook was used to dial the IOL into position. Residual viscoelastic was then removed first from posterior to the IOL, then from the anterior chamber using the I/A handpiece. The lens implant was noted to center nicely within the capsular bag. The incisions were stromally hydrated, and the anterior chamber was reformed using BSS. Then 0.5cc of moxifloxacin 1 .0mg/ml were injected into the capsular bag and anterior chamber. The incisions were checked with a Weck spear and found to be secure. Several drops of ophthalmic povidone-iodine 5% were then applied to the eye followed by two drops of Imprimis combination prednisolone/moxifloxacin/nepafenac solution. The drapes were removed and a clear plastic protective eye shield was placed over the eye. The patient was then returned to Same Day Surgery in stable condition.
--- NOTE | 2022-07-16 11:39 | W.ANESPOSTOP ---
Postoperative Evaluation Date, Time and Location Date Performed: 07/16/22 Time Performed: 11:30 Patient Location: Day Surgery Unit Vital Signs Most Recent Imported Vital Signs: Most Recent Vital Signs Temp Pulse Resp BP Pulse Ox 36.3 C L 58 L 18 148/60 H 97 07/16/22 11:23 07/16/22 11:23 07/16/22 11:23 07/16/22 11:23 07/16/22 11:23 Pain Score Most Recent Pain Score: Most Recent Pain Score Pain Level 0 07/16/22 11:23 Assessment Mental Status: Awake (Alert & Oriented to Patient Baseline) Airway and Respiratory Function: Patent airway with normal (patient baseline) respiratory exam Cardiovascular Function: Hemodynamically Stable Hydration Status: Adequately Hydrated Nausea & Vomiting: No Nausea or Vomiting Pain: Pt. Denies Any Pain Peripheral Nerve Block: Patient did not receive a nerve block
[2022-07-16 11:48] VITALS: BP 134/66; PULSE 58; RESP 18; TEMP 36.5; O2SAT 96
== END 2022-07-16 11:53 | disposition home or self-care (01) ==
LOC: SUR 09:39
PROVIDERS: PCP Student in an Organized Health Care Education/Training Program; Visit Provider Ophthalmology
PROC: (CPT 66984; principal; 2022-07-16 12:30)
DX: H25.041 Posterior subcapsular polar age-related cataract, right eye (principal); H25.11 Age-related nuclear cataract, right eye; I10 Essential (primary) hypertension; K21.9 Gastro-esophageal reflux disease without esophagitis; Z98.42 Cataract extraction status, left eye
CPT/HCPCS: 66984; V2632

== ENCOUNTER 2022-12-03 15:15 | Outpatient (REF) | payer MEDICARE, SELFPAY | END 2022-12-03 15:16 | disposition home or self-care (01) | LOC: LBO 15:15 | PROVIDERS: PCP Student in an Organized Health Care Education/Training Program; Visit Provider Nurse Practitioner Family | DX: R35.0 Frequency of micturition (principal); N89.8 Other specified noninflammatory disorders of vagina; B96.29 Other Escherichia coli [E. coli] as the cause of diseases classified elsewhere | CPT/HCPCS: 87077; 87086; 87186; 87480; 87510; 87660 ==

== ENCOUNTER → 2022-12-28 00:51 | Outpatient (CLI) | payer MEDICARE, SELFPAY ==
--- NOTE | 2022-12-28 06:52 | DI.US_ITS ---
Exam(s) US RENAL US ABDOMEN LIMITED EXAM: US ABDOMEN LIMITED and U/S renal CLINICAL HISTORY: ruq abd pain,r10.11,eval liver and gb TECHNIQUE: Ultrasound abdomen performed using standard protocol. COMPARISON: US ABDOMEN ULTRASOUND (P) from 12/27/2013 US US ABDOMEN from 10/17/2019 FINDINGS: PANCREAS: Normal where visualized. LIVER: There is diffuse increased echogenicity of the liver consistent with fatty infiltration. The liver measures 14.6 cm long. Hepatopedal flow in the Portal Vein. GALLBLADDER: No evidence of cholelithiasis. No evidence of wall thickening. No pericholecystic fluid identified. BILIARY SYSTEM: Common bile duct measures < 7 mm. No intrahepatic biliary ductal dilation. GALARZA'S SIGN: Negative. ASCITES: None seen. Renal size in cm: Right: 9.2. Left: 9.6. Echogenicity: Normal. Hydronephrosis: No. Cyst or mass: No. Nephrolithiasis: No. Other findings: None. Bladder:Normal. Ureteral jets: Right: Visualized and unremarkable. Left: Visualized and unremarkable. Prevoid vol:85 cc Postvoid vol:30 cc Renal color flow: Symmetric and within normal limits. IMPRESSION: 1. Fatty infiltration of the liver. 2. No evidence of cholelithiasis or biliary ductal dilatation. 3. Unremarkable renal examination. DATA REPOSITORY:
== END ==
PROVIDERS: PCP Student in an Organized Health Care Education/Training Program; Visit Provider Student in an Organized Health Care Education/Training Program
DX: K76.0 Fatty (change of) liver, not elsewhere classified (principal)
CPT/HCPCS: 36415; 76770; 80053; 83690; 76705; 83735; 84439; 84443

== ENCOUNTER 2022-12-28 03:15 | Outpatient (CLI) | payer MEDICARE, SELFPAY ==
[2022-12-28 10:28] LABS: Lipase 16 U/L (16-77)
[2022-12-28 10:41] LABS: ALT 28 U/L (14-59); AST 19 U/L (15-37); Albumin 4.1 g/dL (3.4-5.0); Alkaline Phosphatase 88 U/L (46-116); BUN 10 mg/dL (7-18); Bilirubin, Total 0.3 mg/dL (0.2-1.0); CREATININE 0.7 mg/dL (0.55-1.02); Calcium 9.8 mg/dL (8.5-10.1); Chloride 102 mmol/L (98-107); Estimated GFR 90.14 (mL/min/1.73m2); Glucose 104 mg/dL (74-106); Sodium 139 mmol/L (136-145); TSH (W/Ref FT4) 4.24 uIU/mL (0.36-3.74); Total Protein 8.3 g/dL (6.4-8.2)
[2022-12-28 10:58] LABS: FREE T4 1.14 ng/dL (0.76-1.46)
== END 2022-12-28 03:16 | disposition home or self-care (01) ==
LOC: LBO 03:15
PROVIDERS: Absent Provider Student in an Organized Health Care Education/Training Program; PCP Student in an Organized Health Care Education/Training Program; Referring Provider Student in an Organized Health Care Education/Training Program; Visit Provider Student in an Organized Health Care Education/Training Program
DX: E86.0 Dehydration (principal); Z91.89 Other specified personal risk factors, not elsewhere classified; K85.90 Acute pancreatitis without necrosis or infection, unspecified; K22.70 Barrett's esophagus without dysplasia; F41.9 Anxiety disorder, unspecified; R79.89 Other specified abnormal findings of blood chemistry; E78.1 Pure hyperglyceridemia
CPT/HCPCS: 36415; 80053; 83690; 82656; 83735; 84439; 84443

== ENCOUNTER 2023-01-03 14:22 | Outpatient (REF) | payer MEDICARE, SELFPAY | END 2023-01-03 14:23 | disposition home or self-care (01) | LOC: LBN 14:22 | PROVIDERS: PCP Student in an Organized Health Care Education/Training Program; Visit Provider Obstetrics & Gynecology | DX: N89.8 Other specified noninflammatory disorders of vagina (principal) | CPT/HCPCS: 87480; 87510; 87660 ==

== ENCOUNTER 2023-01-12 04:02 | Outpatient (CLI) | payer MEDICARE, SELFPAY ==
[2023-01-17 17:53] LABS: Apolipoprotein B, Serum 166 mg/dL (48-124); Beta VLDL Cholesterol Not Detected mg/dL (<15); Beta VLDL Triglycerides Not Detected mg/dL (<15); Cholesterol, Total, CDC 276 mg/dL; Chylomicron Cholesterol 2 mg/dL; Chylomicron Triglycerides 33 mg/dL; HDL Cholesterol, CDC 37 mg/dL (>=50); LDL Cholesterol 196 mg/dL; LDL Triglycerides 81 mg/dL (<=50); Lp(a) Cholesterol <5 mg/dL (<5); LpX Not detected; Triglycerides, CDC 296 mg/dL; VLDL Cholesterol 41 mg/dL (<30); VLDL Triglycerides 155 mg/dL (<120)
== END 2023-01-12 04:03 | disposition home or self-care (01) ==
LOC: LBO 04:02
PROVIDERS: PCP Student in an Organized Health Care Education/Training Program; Referring Provider Student in an Organized Health Care Education/Training Program; Visit Provider Student in an Organized Health Care Education/Training Program
DX: E78.5 Hyperlipidemia, unspecified (principal); K76.0 Fatty (change of) liver, not elsewhere classified
CPT/HCPCS: 80061; 81596; 82172; 82664

== ENCOUNTER 2023-01-28 04:13 | Outpatient (CLI) | payer MEDICARE, SELFPAY ==
[2023-01-28 11:58] LABS: ALT 36 U/L (14-59); AST 30 U/L (15-37); Albumin 4.1 g/dL (3.4-5.0); Alkaline Phosphatase 93 U/L (46-116); Bilirubin, Total 0.4 mg/dL (0.2-1.0); Total Protein 8.5 g/dL (6.4-8.2)
[2023-01-28 12:02] LABS: Bilirubin, Direct < 0.1 mg/dL (0.0-0.2)
[2023-02-01 11:58] LABS: ALT 31 U/L (7-45); ActiTest Grade A0; ActiTest Interpretation no activity; ActiTest Score 0.14; Alpha-2-Macroglobulin 238 mg/dL (100 - 280); Apoliprotein A1 108 mg/dL (>=140); Bilirubin, Total 0.2 mg/dL (0.0 - 1.2); FibroTest Interpretation no fibrosis; FibroTest Score 0.22; FibroTest Stage F0-F1; GGT 18 U/L (5 - 36); Haptoglobin 217 mg/dL (30 - 200)
== END 2023-01-28 04:14 | disposition home or self-care (01) ==
LOC: LBO 04:14
PROVIDERS: Absent Provider Student in an Organized Health Care Education/Training Program; PCP Student in an Organized Health Care Education/Training Program; Referring Provider Student in an Organized Health Care Education/Training Program; Visit Provider Student in an Organized Health Care Education/Training Program
DX: K76.0 Fatty (change of) liver, not elsewhere classified; G45.9 Transient cerebral ischemic attack, unspecified
CPT/HCPCS: 36415; 80076; 81596; 82656

== ENCOUNTER → 2023-01-31 13:03 | Outpatient (BNVA) | payer MEDICARE, SELFPAY | PROVIDERS: PCP Student in an Organized Health Care Education/Training Program; Referring Provider Student in an Organized Health Care Education/Training Program; Visit Provider Psychiatry & Neurology Neurology | DX: R47.1 Dysarthria and anarthria (principal); R73.9 Hyperglycemia, unspecified; E78.5 Hyperlipidemia, unspecified; Z78.9 Other specified health status | CPT/HCPCS: 99215 ==

== ENCOUNTER → 2023-02-01 13:07 | Outpatient (CLI) | payer MEDICARE, SELFPAY ==
--- NOTE | 2023-02-01 10:52 | DI.US_ITS ---
APPROVED REPORT EXAM: Comprehensive 2D, Doppler, and color-flow Echocardiogram Patient Location: Out-Patient Svp Of Digital: Wai Ramos RDCS (AE) Indications: cerebral infarction, bubble study Echo Enhancing Agent Indication: Rule out Shunt Agent(s) / Amount(s) Used: Agitated Saline 30.0 cc Comments: Contrast study was performed with 3 IV injections of 10ccs of agitated normal saline, at re st, with cough and post valsalva maneuver. Negative contrast study for shunt flow. Other Information Study Quality: Adequate Conclusion The left ventricular wall thickness and chamber size. Ejection fraction is 60%. Wall motion is norm al Normal right ventricular size and systolic function. Both atria are normal in size There is no intracardiac shunting demonstrated on injection of agitated saline There is no structural or hemodynamically significant valvular disease Wall motion Left Ventricle The left ventricle is normal size. The left ventricular systolic function is normal. The left ventric ular ejection fraction is within the normal range. There is normal left ventricular wall thickness. T here is normal LV segmental wall motion. There is no ventricular septal defect visualized. LVEF is 60 %. Right Ventricle The right ventricle is normal size. The right ventricular systolic function is normal. The RVSP is 30 .2 mmHg. Atria The left atrium size is normal. The right atrium size is normal. Saline bubble contrast intravenous i njection does not demonstrate PFO. The interatrial septum is intact with no evidence for an atrial se ptal defect. Aortic Valve The aortic valve is normal in structure. Aortic valve is trileaflet. There is no aortic valvular sten osis. No aortic regurgitation is present. Mitral Valve The mitral valve is normal in structure. No evidence of mitral valve stenosis. Mild mitral regurgitat ion. Tricuspid Valve The tricuspid valve is normal in structure. There is no tricuspid valve stenosis. Trace tricuspid reg urgitation. Pulmonic Valve The pulmonary valve is normal in structure. There is no pulmonic valvular stenosis. Mild pulmonic reg urgitation. Great Vessels The aortic root is normal in size. The ascending aorta is normal in size. Aortic arch is normal in ca liber. IVC is normal in size and collapses >50% with inspiration. Pericardium There is no pericardial effusion. 2D Dimensions IVSD d PLAX 0.65 cm F: 0.6-1.0 Ao Root d 2.53 cm F: 2.7 - 3.3 LVPW d PLAX 0.80 cm F: 0.6 - 1.0 Ao Asc Diam d 2.96 cm F: 2.3 - 3.1 LVID d PLAX 4.46 cm F: 3.8 - 5.2 LVDs 3.03 cm F: 2.2 - 3.5 LV EF Teichholz 60.4 % FS 32.06 % LV EDV (Teich) 90.7 mL LV ESV (Teich) 35.9 mL Stroke Vol Index (Teich) 31.84 M-Mode TAPSE 2.33 cm (M/F) >1.7 Auto EF LV EDV A4C 69.0 mL LV EDV A2C 74.7 mL LV EDV BP LV ESV A4C 28.4 mL LV ESV A2C 29.0 mL LV ESV BP LVEF(%) A4C 58.8 % LVEF(%) A2C 61.1 % LVEF(%) BP LV SV A4C 40.6 ml LV SV A2C 45.6 ml LV SV BP LV CO A4C 2.5 L/min LV CO A2C 2.9 L/min LV CO BP HR A4C 61.23 BPM HR A2C 63.94 BPM LV EDV Index (BP) LA Volume LA Length A4C 3.7 cm LA Length A2C LA Area A4C s 9.51 cm2 LA Area A2C s LA Vol A4C A-L 20.54 mL LA Vol A2C A-L LA Vol Biplane A-L LA Vol A4C MOD 18.6 mL LA Vol A2C MOD LA Vol BP MOD RA Volume RA Area A4C 8.2 cm2 RA ESV A4C (A-L) 12.9mL RA Vol/BSA A4C A-L RA Length A4C 4.5 cm RA ESV A4C (MOD) 12.5mL LV Diastology MV E' medial 0.065 (>0.07 m/s) MV E Vmax 0.66 (0.4-1.3 m/s) MV E/E' MED 10.09 (<14) MV A Vmax 0.80 (0.4-1.3 m/s) MV E' lateral 0.087 (>0.1 m/s) E/A Ratio 0.8 MV E/E' LAT 7.54 (<14) MV E' Average 0.076 m/s MV E/E'(average) 8.63 Aortic Valve AoV Vmax 1.40 m/s LVOT Vmax 1.15 m/s AoV Peak Grad 7.9 mmHg LVOT Peak Grad 5.3 mmHg AoV Area (Vmax) 1.98 cm2 LVOT VTI 0.263 m AoV VTI 0.310 m LVOT Mean Grad 2.8 mmHg AoV Mean Anurag. 0.93 m/s LVOT SV 63.78 mL AoV Mean Grad 4.0 mmHg LVOT Diam s 1.75 cm AoV Area (VTI) 2.06 cm2 Velocity Ratio 0.82 Mitral Valve MV DT 200 (160-240 msec) Pulmonary Valve PV Vmax 0.86 (0.5-1.5 m/s) RVOT Vmax 0.70 m/s PV Peak Grad 2.9 mmHg RVOT Peak Gr. 1.9 mmHg PV Mean Anurag 0.59 m/s RVOT VTI 0.166 m PV Mean Grad 1.6 mmHg RVOT Mean Gr. 1.1 mmHg Tricuspid Valve RA Pressure 3.00 mmHg TR Vmax 2.61 m/s TR Peak Grad 27.2 mmHg RVSP (TR) 30.2 mmHg
== END ==
PROVIDERS: PCP Student in an Organized Health Care Education/Training Program; Visit Provider Psychiatry & Neurology Neurology
DX: I63.9 Cerebral infarction, unspecified (principal)
CPT/HCPCS: 70496; 70498; 93306; J3490

== ENCOUNTER → 2023-02-01 18:15 | Outpatient (CLI) | payer MEDICARE, SELFPAY ==
--- NOTE | 2023-02-01 14:15 | DI.CT_ITS ---
Exam(s) CT BRAIN NECK CTA EXAM: CT BRAIN NECK CTA CLINICAL HISTORY: TIA,hypertension,gibberish asphasia,? stenosis,G45.9,R47.01. TECHNIQUE: Imaging Protocol: Axial CT angiography was performed with multi-slice acquisition and mu lti-planar and 3D reconstructions. CONTRAST MATERIAL: Intravenous: Omnipaque 350 Contrast volume:100 ml COMPARISON: No exams were available for comparison FINDINGS: CT Head W/O and W contrast: Ventricles and Extra axial spaces: Normal in size and morphology for the patient's age. Hemorrhage: None. Cerebral parenchyma: Normal. Midline shift: None. Brainstem/Cerebellum: Normal. Calvarium: Normal. Visualized Paranasal sinuses/Mastoids: Opacification of the left sphenoid sinus. Soft Tissues: Unremarkable. Enhancement: Normal. CTA Brain W: Internal Carotid Arteries: Petrous: Normal. Cavernous: Normal. Cerebral: Normal. Middle Cerebral Arteries: Right: No aneurysm, occlusion or significant stenosis. Left: No aneurysm, occlusion or significant stenosis. Anterior Cerebral Arteries: Right: No aneurysm, occlusion or significant stenosis. Left: No aneurysm, occlusion or significant stenosis. Posterior cerebral Arteries: Right: No aneurysm, occlusion or significant stenosis. Left: No aneurysm, occlusion or significant stenosis. Vertebral Arteries: Right: No aneurysm, occlusion or significant stenosis. Left: No aneurysm, occlusion or significant stenosis. Basilar Artery: No aneurysm, occlusion or significant stenosis. CTA Neck W: Common Carotid: Right: No dissection, occlusion or significant stenosis. Left: No dissection, occlusion or significant stenosis. External Carotid: Right: No dissection, occlusion or significant stenosis. Left: No dissection, occlusion or significant stenosis. Internal Carotid: Right: Focal area of narrowing at the proximal right internal carotid artery, proximally 50 percent s tenosis. No dissection, occlusion. Left: Minimal plaque. No dissection, occlusion or significant stenosis. Vertebral Artery: Right: No dissection, occlusion or significant stenosis. Left: No dissection, occlusion or significant stenosis. Lung Apices: Normal. Bones: No acute abnormality. Mild degenerative changes. Soft Tissues: Normal. IMPRESSION: 1. Normal CTA examination of the [place]. 2. Unremarkable CT Head. 3. Noncalcified plaque at the proximal right internal carotid artery causing approximately 50 percent stenosis. RADIATION DOSE DELIVERED: Total DLP DATA REPOSITORY: All CT scans at this facility are submitted to the National Radiology Data Registry (NRDR) Dose Index Registry (DIR) with the [employer] (ACR). RADIATION OPTIMIZATION: All CT scans at this facility use at least one of these dose optimization te chniques: automated exposure control; mA and/or kV adjustment per patient size (includes targeted exa ms where dose is matched to clinical indication); or iterative reconstruction.
[2023-02-01] MEDS: Normal Saline - Diluent 50 ML VIAL IJ (14:45)
[2023-02-01] MEDS: Omnipaque 350 MG/ML 100 ML BTL IJ (14:46)
[2023-02-01] MEDS: Normal Saline Flush 10 ML SYR IVP (14:47)
== END ==
PROVIDERS: PCP Student in an Organized Health Care Education/Training Program; Visit Provider Student in an Organized Health Care Education/Training Program
DX: E78.00 Pure hypercholesterolemia, unspecified (principal); E78.2 Mixed hyperlipidemia; G45.9 Transient cerebral ischemic attack, unspecified; I10 Essential (primary) hypertension; K76.0 Fatty (change of) liver, not elsewhere classified; R47.01 Aphasia; Z78.9 Other specified health status
CPT/HCPCS: 70496; 70498; J3490

== ENCOUNTER 2023-02-07 10:48 | Outpatient (CLI) | payer MEDICARE, SELFPAY | END 2023-02-07 10:49 | disposition home or self-care (01) | PROVIDERS: PCP Student in an Organized Health Care Education/Training Program; Visit Provider Psychiatry & Neurology Neurology | DX: I48.0 Paroxysmal atrial fibrillation (principal) | CPT/HCPCS: 93270 ==

== ENCOUNTER → 2023-02-21 02:54 | Outpatient (CLI) | payer MEDICARE, SELFPAY ==
--- NOTE | 2023-02-21 07:30 | DI.MRI_ITS ---
Exam(s) MR BRAIN WO EXAM: MR BRAIN WO CLINICAL HISTORY: transient dysarthria,TIA,G45.9 TECHNIQUE: Multiplanar multisequence MRI of the brain was performed. COMPARISON: CT CT BRAIN NECK CTA from 02/01/2023 FINDINGS: CEREBRAL PARENCHYMA: There is no evidence of intracranial hemorrhage, mass effect, or shift of midline structures. There are no extra-axial fluid collections. Ventricles are not enlarged or shifted. There is no significant focal signal abnormality in the cerebellar hemispheres nor within the carlos, m idbrain, and thalami. There is a small focus of FLAIR bright signal abnormality in white matter adjacent to the atrium of t he left lateral ventricle, not associated with hemorrhage nor surrounding edema and no evidence of re stricted diffusion evident at this level nor elsewhere in the brain. There is no significant focal signal abnormality evident on diffusion imaging to suggest acute ischem ic event. PITUITARY GLAND: No mass nor parasellar abnormality. No obvious abnormality in the cavernous sinuses. FLOW VOIDS: The expected flow void are noted. No evidence of obvious aneurysm nor obvious vascular ma lformation. Left vertebral artery is noted to be dominant. PARANASAL SINUSES: There is abnormal mucosal thickening noted in the left sphenoid sinus. Right sphe noid sinus is clear as are the ethmoidal air cells and remainder of the paranasal sinuses including t he frontal sinuses. Mastoid air cells are clear. ORBITS: No obvious findings. IMPRESSION: 1. Small focus of FLAIR bright signal abnormality in the white matter adjacent to the atrium left lat eral ventricle, not associated with hemorrhage nor surrounding edema nor restricted diffusion. 2. Mucosal thickening noted in left sphenoid sinus, as evident on CT scan of 02/01/2023. DATA REPOSITORY:
== END ==
PROVIDERS: PCP Student in an Organized Health Care Education/Training Program; Visit Provider Psychiatry & Neurology Neurology
DX: G45.9 Transient cerebral ischemic attack, unspecified (principal)
CPT/HCPCS: 70551

== ENCOUNTER → 2023-03-15 00:54 | Outpatient (CLI) | payer MEDICARE, SELFPAY ==
--- NOTE | 2023-03-15 07:30 | DI.RAD_ITS ---
Exam(s) XR CHEST 2V PA LATERAL EXAM: XR CHEST 2V PA LATERAL CLINICAL HISTORY: abnl lung sounds, R09.89 TECHNIQUE: 2D digital imaging was performed. COMPARISON: CR ABD FLAT UPRIGHT PA CHEST from 08/27/2010 FINDINGS: HEART: Normal size. Aorta: Not dilated. PULMONARY VASCULATURE: Normal. LUNGS: Clear. PLEURAL SPACE: No pleural effusion or pneumothorax. BONE:Mild midthoracic compression fracture. Soft tissues: Unremarkable. IMPRESSION: No acute abnormality. DATA REPOSITORY: RADIATION DOSE DELIVERED:
== END ==
PROVIDERS: PCP Student in an Organized Health Care Education/Training Program; Visit Provider Student in an Organized Health Care Education/Training Program
DX: R09.89 Other specified symptoms and signs involving the circulatory and respiratory systems (principal)
CPT/HCPCS: 71046

== ENCOUNTER 2023-03-25 08:18 | Outpatient (CLI) | payer MEDICARE, SELFPAY ==
--- NOTE | 2023-03-25 08:30 | W.CARDEVENT ---
Date of service: 03/25/23 Time of Service: 08:31 Cardiac Event Recorder Referring Provider:: Michael Coughlin Indications:: TIA,cerebral Cardiac Event Note: This was a 30-day event monitor done for cerebral transient ischemic attack 1. The underlying rhythm is sinus with average heart rate of 71.9 bpm 2., 14 beat run of atrial fibrillation with aberrant conduction (Jaime's phenomenon),interpreted by computer software as ventricular tachycardia. The rate was 153 bpm. 3. No ventricular ectopy noted 4. No pauses Impression: Paroxysmal atrial fibrillation with aberrant conduction
== END 2023-03-25 08:19 | disposition home or self-care (01) ==
LOC: CARDOPNVT 08:18
PROVIDERS: PCP Student in an Organized Health Care Education/Training Program; Visit Provider Internal Medicine Interventional Cardiology
DX: G45.9 Transient cerebral ischemic attack, unspecified (principal); I48.91 Unspecified atrial fibrillation
CPT/HCPCS: 00123; 93272

== ENCOUNTER → 2023-04-11 14:11 | Outpatient (BNVA) | payer MEDICARE, SELFPAY | PROVIDERS: PCP Student in an Organized Health Care Education/Training Program; Referring Provider Student in an Organized Health Care Education/Training Program; Visit Provider Psychiatry & Neurology Neurology | DX: I65.21 Occlusion and stenosis of right carotid artery (principal); G56.03 Carpal tunnel syndrome, bilateral upper limbs; I48.0 Paroxysmal atrial fibrillation; Z78.9 Other specified health status | CPT/HCPCS: 99215 ==

== ENCOUNTER 2023-04-15 11:13 | Outpatient (CLI) | payer MEDICARE, SELFPAY ==
--- NOTE | 2023-04-15 11:00 | RT.EKG_ITS ---
APPROVED REPORT Exam: Resting ECG Reason for Exam: baseline Patient Location: O HR:66 bpm ECG Measurements Heart Rate 66 AXIS VT 181 P 45 QRSd 99 QRS 3 QT 390 T 3 QTc 409 Conclusion Sinus rhythm...normal P axis, V-rate 50- 99 Low voltage, precordial leads...precordial leads <1.0mV Probable left ventricular hypertrophy...multiple LVH criteria Baseline wander in lead(s) V3 I have reviewed and interpreted ECG and agree with software generated interpretation.
== END 2023-04-15 11:14 | disposition home or self-care (01) ==
LOC: DI.CARD 11:14
PROVIDERS: PCP Student in an Organized Health Care Education/Training Program; Visit Provider Internal Medicine Interventional Cardiology
DX: I48.0 Paroxysmal atrial fibrillation (principal)
CPT/HCPCS: 93010

== ENCOUNTER 2023-04-15 15:10 | Outpatient (CLI) | payer MEDICARE, SELFPAY ==
[2023-04-15 10:50] LABS: HCT 40.4 % (36.0-46.0); HGB 12.7 g/dL (11.2-15.7); MCH 26.5 pg (27.0-33.0); MCHC 31.4 % (32.0-36.0); MCV 84 fL (80-95); MPV 10.2 fL (8.0-11.0); Platelet Count 344 10^3/uL (130-400); RBC 4.79 10^6/uL (3.93-5.22); RDW 13.7 % (11.7-14.6); RDW-SD 42.3 fL; WBC 5.67 10^3/uL (4.4-10.8)
[2023-04-15 11:21] LABS: Folate 17.5 ng/mL (8.6-20.0)
[2023-04-15 11:31] LABS: Anion Gap 7.3 mmol/L (3-11); BUN 11 mg/dL (7-18); CO2 28.7 mmol/L (21.0-32.0); CREATININE 0.8 mg/dL (0.55-1.02); Calcium 9.5 mg/dL (8.5-10.1); Chloride 102 mmol/L (98-107); Estimated GFR 76.79 (mL/min/1.73m2); Glucose 143 mg/dL (74-106); Potassium 4.1 mmol/L (3.5-5.1); Sodium 138 mmol/L (136-145); TSH (W/Ref FT4) 2.53 uIU/mL (0.36-3.74); Vitamin B12 265 pg/mL (193-986)
[2023-04-15 11:47] LABS: Iron 50 ug/dL (50-170); Total Iron Binding Capacity 380 ug/dL (250-450); Transferrin Sat 13 % (15-50)
[2023-04-15 12:25] LABS: Hemoglobin A1C 6.2 % (<5.7)
== END 2023-04-15 15:11 | disposition home or self-care (01) ==
LOC: LBO 15:11
PROVIDERS: Absent Provider Student in an Organized Health Care Education/Training Program; PCP Student in an Organized Health Care Education/Training Program; Visit Provider Student in an Organized Health Care Education/Training Program
DX: Z91.89 Other specified personal risk factors, not elsewhere classified (principal); G45.9 Transient cerebral ischemic attack, unspecified; R06.09 Other forms of dyspnea; R10.11 Right upper quadrant pain; R73.09 Other abnormal glucose; K21.9 Gastro-esophageal reflux disease without esophagitis; M85.80 Other specified disorders of bone density and structure, unspecified site; E78.00 Pure hypercholesterolemia, unspecified; R79.89 Other specified abnormal findings of blood chemistry
CPT/HCPCS: 36415; 80048; 85027; 82607; 82746; 83036; 83540; 83550; 84443

== ENCOUNTER → 2023-04-19 01:15 | Outpatient (CLI) | payer MEDICARE, SELFPAY ==
--- NOTE | 2023-04-19 06:45 | DI.US_ITS ---
Exam(s) US CAROTID EXAM: US CAROTID CLINICAL HISTORY: R carotid stenosis,tia.I65.21,G45.9. TECHNIQUE: Ultrasound carotids performed using grayscale, color-flow, and spectral Doppler imaging. COMPARISON: US US ECHOCARDIOGRAM W BUBBLES from 02/01/2023 FINDINGS: CAROTID ARTERIES: On the right side there is plaque evident within the proximal right internal carotid artery with elev ated peak systolic velocity of 186 cm/sec and also elevated end-diastolic velocity of 47 cm/sec. Ind icates moderate stenosis approximately 50-69 percent. Flow speed in the right ICA in the upper neck within normal limits On the left side there is also some plaque evident within the carotid bulb. No elevated velocities o n the left side. VERTEBRAL ARTERIES: Antegrade flow demonstrated in both vertebral arteries. Measurements: R Bulb: 92.5cm/s PS / 19.2cm/s ED R CCA: 96.6cm/s PS / 22.8cm/s ED R ECA: 121.6cm/s PS / 10.2cm/s ED R ICA Prox: 186.4cm/s PS / 47cm/s ED R ICA Mid: 98.7cm/s PS / 25.2cm/s ED R ICA Distal: 63.8cm/s PS /16.6cm/s ED R Vert: 90.3cm/s PS / 31.3cm/s ED R SVR: 1.9 R DVR: 2.1 L Bulb: 102.1cm/s PS / 22.7cm/s ED L CCA: 88.1cm/s PS / 20.1cm/s ED L ECA: 121cm/s PS / 2.9cm/s ED L ICA Prox: 96.1cm/s PS / 25.9cm/s ED L ICA Mid: 87.3cm/s PS / 30.3cm/s ED L ICA Distal: 71.2cm/s PS / 22.5cm/s ED L Vert: 80.4cm/s PS / 24.5cm/s ED L SVR: 1.2 L DVR: 1.1 IMPRESSION: 1. Plaque at the level of the proximal internal carotid arteries bilaterally, more so on the right si de where velocities are elevated as described above and indicate stenosis of approximately 50-69%. E stimated stenosis on the opposite-left side is less than 50 percent. 2. Antegrade flow is demonstrated in both vertebral arteries in the neck. Criteria for Carotid Stenosis: Normal: ICA PSV <125 cm/s no plaque or intimal thickening is visible. <50% stenosis: ICA PSV <125 cm/s and plaque or intimal thickening is visible. 50-69% stenosis: ICA PSV is 125-250 cm/s and plaque is visible. >70% stenosis to near occlusion: ICA PSV >250 cm/s with visible plaque and luminal narrowing. DATA REPOSITORY:
== END ==
PROVIDERS: PCP Student in an Organized Health Care Education/Training Program; Visit Provider Psychiatry & Neurology Neurology
DX: I65.21 Occlusion and stenosis of right carotid artery
CPT/HCPCS: 93880

== ENCOUNTER 2023-04-25 09:00 | Emergency (ER) | payer MEDICARE, SELFPAY ==
[2023-04-25] VITALS (8 sets, daily range): BP systolic 129–187; BP diastolic 60–105; PULSE 57–63; RESP 13–19; TEMP 36.4–36.8; O2SAT 94–99
--- NOTE | 2023-04-25 09:00 | RT.EKG_ITS ---
APPROVED REPORT Exam: Resting ECG Reason for Exam: Dizziness Patient Location: E HR:57 bpm ECG Measurements Heart Rate 57 AXIS IA 175 P 61 QRSd 60 QRS 20 QT 414 T 16 QTc 403 Conclusion Sinus bradycardia no stemi normal intervals
--- NOTE | 2023-04-25 09:45 | DI.CT_ITS ---
Exam(s) CT HEAD WO EXAM: CT HEAD WO CLINICAL HISTORY: dizziness. TECHNIQUE: Imaging Protocol: Axial computed tomography images with coronal and sagittal reformatted images were created and reviewed COMPARISON: CT CT BRAIN NECK CTA from 02/01/2023 FINDINGS: There are no skull fractures. There is no fluid in the visualized paranasal sinuses. There is no evidence of intracranial hemorrhage, mass effect, or shift of midline structures. There are no extra-axial fluid collections. The ventricles are not enlarged or shifted and there is no blo od within the ventricular system nor within the basal cisterns. IMPRESSION: No acute intracranial findings on this noninfused CT scan of the brain. Called by myself to ER provider. RADIATION DOSE DELIVERED: 647.26mGy.cm Total DLP DATA REPOSITORY: All CT scans at this facility are submitted to the National Radiology Data Registry (NRDR) Dose Index Registry (DIR) with the [employer] (ACR). RADIATION OPTIMIZATION: All CT scans at this facility use at least one of these dose optimization te chniques: automated exposure control; mA and/or kV adjustment per patient size (includes targeted exa ms where dose is matched to clinical indication); or iterative reconstruction.
[2023-04-25 10:19] LABS: Abs Immature Grans 0.02 10^3/uL (0.0-0.06); Absolute Basophil Count 0.05 10^3/uL (0.0-0.2); Absolute Eosinophil Count 0.09 10^3/uL (0.0-0.7); Absolute Lymphocyte Count 1.74 10^3/uL (1.2-3.4); Absolute Monocyte Count 0.53 10^3/uL (0.1-0.8); Absolute Neutrophil Count 3.31 10^3/uL (1.2-6.7); Basophils % 0.9; Eosinophils % 1.6; HCT 39.8 % (36.0-46.0); HGB 12.7 g/dL (11.2-15.7); Immature Grans % 0.3; Lymphocytes % 30.3; MCH 27.1 pg (27.0-33.0); MCHC 31.9 % (32.0-36.0); MCV 85 fL (80-95); MPV 10.4 fL (8.0-11.0); Monocytes % 9.2; Neutrophils % 57.7; Platelet Count 325 10^3/uL (130-400); RBC 4.69 10^6/uL (3.93-5.22); RDW 14.1 % (11.7-14.6); RDW-SD 43.2 fL; WBC 5.74 10^3/uL (4.4-10.8)
--- NOTE | 2023-04-25 10:35 | ED.GENADUL_ITS ---
HPI General Mode of arrival: ambulatory . Date/Time Provider Initiated Documentation: 04/25/23 09:11 . Limitations to Documentation: no limitations . Information obtained by: patient and RN notes reviewed . History of Present Illness 77 year old F presents to the emergency department with the chief complaint of High blood pressure, dizziness, described as moderate, Patient started experiencing this day(s) (3) and it has been intermittent. No relieving factors improve symptom(s), No exacerbating factors reported . Patient notes no other symptoms.. Patient did receive the following treatments prior to arrival, none Related Data Home Medications Medication Instructions Recorded Confirmed omeprazole 20 mg-sodium 1 cap PO DAILY 11/14/17 04/25/23 bicarbonate 1.1 gram capsule (Zegerid) acetaminophen 650 mg 650 mg PO Q8H 08/15/18 04/25/23 tablet,extended release (Tylenol Arthritis Pain) fluticasone propionate 50 2 spray intranasal DAILY 30 days 10/05/21 04/25/23 mcg/actuation nasal #16 grams spray,suspension (Flonase Allergy Relief) cetirizine 10 mg tablet (Zyrtec) 10 mg PO DAILY 12/21/21 04/25/23 cholecalciferol (vitamin D3) 25 2,000 unit PO DAILY 12/21/21 04/25/23 mcg (1,000 unit) tablet cranberry extract 250 mg capsule 250 mg PO DAILY 03/18/22 04/25/23 estradiol 0.01% (0.1 mg/gram) 0.25 g vaginal DAILY #42.5 grams 01/05/23 04/25/23 vaginal cream levothyroxine 25 mcg tablet 12.5 mcg (1/2 x 25 mcg) PO DAILY 02/01/23 04/25/23 (Levo-T) #90 tabs alprazolam 0.25 mg tablet 0.25 mg PO DAILY PRN anxiety #10 03/24/23 04/25/23 tabs alirocumab 75 mg/mL subcutaneous 75 mg subcut Q14D 28 days #2 mL 03/29/23 04/25/23 pen injector (Praluent Pen) metoprolol tartrate 100 mg tablet See Rx Instructions PO BID #135 04/09/23 04/25/23 tabs aspirin 81 mg tablet,delayed 81 mg PO DAILY #1 tab 04/11/23 04/25/23 release apixaban 5 mg tablet 5 mg PO BID #60 tabs 04/13/23 04/25/23 lisinopril 5 mg tablet 5 mg PO DAILY #14 tabs 04/25/23 Previous Rx's Medication Instructions Recorded fluticasone propionate 50 2 spray intranasal DAILY 30 days 10/05/21 mcg/actuation nasal #16 grams spray,suspension (Flonase Allergy Relief) estradiol 0.01% (0.1 mg/gram) 0.25 g vaginal DAILY #42.5 grams 01/05/23 vaginal cream levothyroxine 25 mcg tablet 12.5 mcg (1/2 x 25 mcg) PO DAILY 02/01/23 (Levo-T) #90 tabs alprazolam 0.25 mg tablet 0.25 mg PO DAILY PRN anxiety #10 03/24/23 tabs alirocumab 75 mg/mL subcutaneous 75 mg subcut Q14D 28 days #2 mL 03/29/23 pen injector (Praluent Pen) metoprolol tartrate 100 mg tablet See Rx Instructions PO BID #135 04/09/23 tabs aspirin 81 mg tablet,delayed 81 mg PO DAILY #1 tab 04/11/23 release apixaban 5 mg tablet 5 mg PO BID #60 tabs 04/13/23 lisinopril 5 mg tablet 5 mg PO DAILY #14 tabs 04/25/23 Allergies Allergy/AdvReac Type Severity Reaction Status Date / Time Penicillins Allergy Mild SKIN RASH Verified 04/25/23 09:17 amoxicillin Allergy Unknown HIVES Verified 04/25/23 09:17 metronidazole Allergy Heart Verified 04/25/23 09:17 racing chlorthalidone AdvReac Intermediate Other (See Verified 04/25/23 09:17 Comment) ciprofloxacin [From Cipro] AdvReac Intermediate Muscle Verified 04/25/23 09:17 spasms in legs ciprofloxacin HCl AdvReac Intermediate Muscle Verified 04/25/23 09:17 [From Cipro] spasms in legs doxycycline AdvReac Unknown ANXIETY Verified 04/25/23 09:17 ezetimibe AdvReac Unknown Verified 04/25/23 09:17 Fish Containing Products AdvReac Unknown Fish Oil Verified 04/25/23 09:17 niacin AdvReac Unknown Verified 04/25/23 09:17 Sulfa (Sulfonamide AdvReac Unknown GI UPSET Verified 04/25/23 09:17 Antibiotics) HMG-COA REDUCTASE INHIBITORS AdvReac Unknown Uncoded 04/25/23 09:17 General Stated Complaint: Dizzy/Sync DARIUSZ: 3 Review of Systems Constitutional Constitutional: Denies fever(s), Reports headache(s) and Denies malaise Eyes Eyes: Denies change in vision ENT Ears, Nose, Mouth, and Throat: Reports dizziness and Reports headache(s) Cardiovascular Cardiovascular: Denies chest pain, Denies syncope, Denies rapid heart rate, Denies pedal edema, Denies leg edema, Reports lightheadedness, Denies radiating jaw, neck or arm pain and Reports dyspnea (Chronic unchanged) Respiratory Respiratory: Denies cough and Reports dyspnea (Chronic unchanged) Gastrointestinal Gastrointestinal: Denies abdominal pain and Denies nausea Neurologic Neurologic: Reports as per HPI, Denies abnormal speech, Denies confusion, Reports dizziness, Denies syncope, Reports headache(s) and Denies localized weakness Psychiatric Psychiatric: Denies confusion Exam Const General: cooperative, healthy appearing, comfortable, no acute distress, not diaphoretic and not ill appearing Nutritional Appearance: average body habitus Orientation: alert, awake and oriented x3 Limitations: mental status not altered Neck Neck: normal visual inspection, full ROM, trachea midline, supple and no anterior neck swelling Carotids: normal carotid upstroke and no bruits Chest Chest: normal inspection of the chest Resp Effort & Inspection: normal respiratory effort and able to speak in complete sentences Auscultation: clear to auscultation bilaterally Cardio Jugular venous pressure: no JVD Palpation: normal PMI Rate: regular rate Rhythm: regular rhythm Heart Sounds: S1 normal, S2 normal, no click, no gallops, no murmurs and no rubs Bruits: no abdominal aortic bruits and no carotid bruits Pulses: radial pulses present bilaterally 2+ GI Inspection: normal to inspection Palpation: soft, no aortic enlargement, no pulsatile masses and nontender Auscultation: normal bowel sounds Skin General skin exam: no rashes or lesions noted Neuro General: patient alert, patient awake, patient oriented x3, tone normal, moves all extremities and CN's II-XI intact bilaterally Cranial Nerves: CN's II-XI intact bilaterally Cognition: normal cognition Speech: speech normal Gait: normal gait Motor: muscle tone normal throughout Sensory Exam: no sensory deficits noted Course Vital Signs Vital signs: Vital Signs Temperature 36.8 C 04/25/23 09:07 Pulse 63 04/25/23 09:07 Respiratory Rate 18 04/25/23 09:07 Blood Pressure 180/94 H 04/25/23 09:07 Temperature 36.8 C 04/25/23 09:07 Temperature Source Oral 04/25/23 09:07 Pulse 60 04/25/23 09:45 Pulse 60 04/25/23 09:45 Respiratory Rate 18 04/25/23 10:10 Respiratory Effort Normal 04/25/23 10:10 Respiratory Depth Normal 04/25/23 10:10 Respiratory Pattern Normal 04/25/23 10:10 Blood Pressure 156/61 H 04/25/23 09:45 Blood Pressure Mean 97 04/25/23 09:45 Blood Pressure Position Sitting 04/25/23 09:07 Pulse Oximetry 94 04/25/23 09:45 Oxygen Delivery Method Room Air 04/25/23 09:07 Oxygen Flow Rate 0 04/25/23 09:07 Lab/Test Results Lab/Test Results: Laboratory Tests Range/Units 04/25/23 10:00 WBC (4.4-10.8) 10^3/uL 5.74 RBC (3.93-5.22) 10^6/uL 4.69 Hgb (11.2-15.7) g/dL 12.7 Hct (36.0-46.0) % 39.8 MCV (80-95) fL 85 MCH (27.0-33.0) pg 27.1 MCHC (32.0-36.0) % 31.9 L RDW (11.7-14.6) % 14.1 Plt Count (130-400) 10^3/uL 325 MPV (8.0-11.0) fL 10.4 Immature Gran % 0.3 Neutrophils % 57.7 Lymphocytes % 30.3 Monocytes % 9.2 Eosinophils % 1.6 Basophils % 0.9 Nucleated RBC % (0.0-0.3) % 0.0 Absolute Neutrophils (1.2-6.7) 10^3/uL 3.31 Absolute Lymphocytes (1.2-3.4) 10^3/uL 1.74 Absolute Monocytes (0.1-0.8) 10^3/uL 0.53 Absolute Eosinophils (0.0-0.7) 10^3/uL 0.09 Absolute Basophils (0.0-0.2) 10^3/uL 0.05 Medical Decision Making Patient presenting to the emergency department for chief complaint of high blood pressure and some dizziness and headache. Patient reports that she has been going through multiple tests and workup given that she was having TIA/mini strokes a couple months ago which she reports no recent incidents. She had seen her primary care along with cardiology that changed some of her meds and did put her on apixaban which she has been taking. She does report over the last 3 days though she has been not feeling well at night and having some dizziness and when she checked her blood pressure it initially was systolic of 180s but slowly increased into the 200s over the past couple nights. She did check her blood pressure this morning which was also elevated causing her to come to the emergency department. Patient denies any chest pain, syncope, does state some associated lightheadedness and does have some anxiety. Patient has significant cardiac risk factors, family history of cardiac disorder. Physical exam is noncontributory with normal neurological exam, cardiac exam, and respiratory exam. I do feel there is a component of anxiety that is factoring into patient's symptoms but review of vital signs does show that patient is hypertensive with otherwise stable vital signs. Will plan on performing labs EKG and head CT Please see physician interpretation for full interpretation of EKG but patient does appear to be in sinus bradycardia on my review of EKG with no acute signs of STEMI. Reviewed patient's labs and CBC along with CMP are unremarkable. Negative/nondetected troponin, TSH is elevated at 4.88 but free T4 is within normal range at 1.22 urinalysis shows small amount of leukocyte Estrace but otherwise contaminated specimen so do not think that patient has urinary tract infection. Patient was reassessed and did state improvement of symptoms but on review of blood pressure while in the department she had readings of 120/ 60s but then also back into the 200s systolic. Patient's heart rate remained low in the 60s so I do not feel that we can increase her metoprolol as she said her electromedical service engineer attempted to do this to give her 100 mg in the morning but that caused significant lightheadedness and dizziness through the day. Did call and contact patient's primary care provider but her direct primary care provider was not available. Spoke with on-call provider about adding lisinopril to see if this helps and they stated that they were not familiar with the patient but they were not in disagreement of adding additional blood pressure control at this time. Did review last primary care visit and did note blood pressure of 180s/90s with no significant concerns stated by primary care provider. Patient to started on low-dose lisinopril of 5 mg given multiple medication interactions and allergies that patient has had in the past. After discussion of diagnosis and plan of care patient has no further needs, questions, or concerns and states clear understanding to return to the emergency department for any worsening symptoms. This documentation was generated using [employer] system, please disregard any oddities of phrase or misspellings. Imaging Data Radiologic Study: Imaging: CT Scan Radiologist's impression: Exam(s) a CT:CT head wo Exam(s) CT HEAD WO EXAM: CT HEAD WO CLINICAL HISTORY: dizziness. TECHNIQUE: Imaging Protocol: Axial computed tomography images with coronal and sagittal reformatted images were created and reviewed COMPARISON: CT CT BRAIN NECK CTA from 02/01/2023 FINDINGS: There are no skull fractures. There is no fluid in the visualized paranasal sinuses. There is no evidence of intracranial hemorrhage, mass effect, or shift of midline structures. There are no extra-axial fluid collections. The ventricles are not enlarged or shifted and there is no blood within the ventricular system nor within the basal cisterns. IMPRESSION: No acute intracranial findings on this noninfused CT scan of the brain. Lab Data Lab results reviewed: Yes I reviewed the patient's lab results. 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 Dyspnea on minimal exertion (Acute) Fam hx-ischem heart disease (Acute) Paroxysmal A-fib (Acute) Carotid stenosis, right (Acute) Carpal tunnel syndrome on both sides (Acute) Compression fracture of body of thoracic vertebra (Acute) per CXR, 03/15/23 .. this seems a new finding?! (albeit rad impression notes no acute abn .. [ ] TBD .. 2009 DEXA says no evidence of vert compressn fx Multiple drug allergies (Acute) and intolerances Medication intolerance (Acute) Flagyl, Clinda, Levothyroxin, Statins, Fish Oils Gibberish aphasia (Acute) TIA (transient ischemic attack) (Acute) Statin intolerance (Acute) Elevated cholesterol with elevated triglycerides (Acute) working with clin pharm re: Vascepa vs Pralulent (inj/chol) Swati type IIb hyperlipoproteinemia (Acute) working with clin pharm re: Vascepa vs Pralulent (inj/chol) Colicky RUQ abdominal pain (Acute) Intermittent, x years .. Hepatic steatosis (Acute) By US 10/17/2019 Hyperlipidemia (Chronic) intolerance to statins, Zetia and fish oil Gastroesophageal reflux disease (Chronic) Gastric polyps per EGD 07/29 Barretts esophogus 07/29 in [place] EGD [facility] 11/02 rpt 5 yrs Hiatal hernia Feeling of incomplete bladder emptying (Acute) Frequent urination at night (Acute) Barretts esophagus (Acute) EGD q 3 yrs! per pt report .. ([facility]) Anxiety (Acute 11/24/12) Essential hypertension (Acute 12/15/12) Obstructive sleep apnea syndrome (Acute) C-Pap panic attack witnessed during sleep study Osteoporosis (Acute) DEXA in 2005; DEXA in 2007-stable; DEXA in 2009-osteopenia Osteopenia (Chronic) per DEXA, 2009 (incl no evidence of vert compressn fx) Vertigo (Acute) Chronic nasal congestion (Acute) Postnasal drip (Acute) Neck pain on right side (Acute) Snoring (Acute) Adenoma (Acute) Cystic, axillary (RT) .. [facility] TSH elevation (Acute) Medical History Poor vision Melanoma + Bx right upper arm 01/2021 (Melanoma) - removed by excision Feb.19. Recommend Q3 month checks x1 yr, then Q6 months for 1 year, then yearly. 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 Recurrent UTI Vaginal discharge +BV - declined tx in Dec 2022, accepted metrogel Apr 13 Atrophic vaginitis 2018, when with Levi Segura (09/16/18) Family history of hypertension Pain of right heel Increased body mass index (BMI) History of tobacco use Left lower quadrant pain assoc with ov cyst? fibroid? per pt report (and mentioned in 2010 annual reviewed when searchign for osteoporosis dx) Right upper quadrant pain Personal history of colonic polyps (02/17/09) neg path report of polyp done in [place] 2009 Inversion of nipple RIGHT INTRADUCTAL PAPILLOMA Family history of abdominal aortic aneurysm (AAA) (12/29/16) Surgical History Hx of colonoscopy Posterior subcapsular age-related cataract, right eye Nuclear age-related cataract, right eye Posterior subcapsular age-related cataract of left eye Nuclear age-related cataract, left eye History of unilateral oophorectomy Status post appendectomy Status post tubal ligation Ligation of fallopian tube PROCEDURES UNILAT OOPHORECTOMY MOHS SURGERY OF RIGHT AXILLARY CYSTIC CARCINOMA; U/S OF BLADDER, LIVER, GALLBLADDER Appendectomy ID @ Ov cyst .. ~ 1970 Family History Mother , age 88 Essential hypertension Aneurysm Heart disease Hyperlipidemia Stroke HH (hiatus hernia) Bladder cancer Colon cancer Father , age 54 Essential hypertension Aneurysm Heart disease Stroke Sister Essential hypertension Heart disease Hyperlipidemia Asthma Skin cancer Brother Substance abuse Essential hypertension Heart disease Hyperlipidemia Alcohol abuse Throat cancer Maternal Grandfather , age 57 Aneurysm Heart disease Alcohol abuse Paternal Grandfather , age 74 Essential hypertension Heart disease Maternal Grandmother Diabetes Essential hypertension Heart disease Paternal Grandmother Essential hypertension Heart disease Maternal Aunt Aneurysm HH (hiatus hernia) Brother Substance abuse Essential hypertension Heart disease Alcohol abuse Brother Essential hypertension Heart disease Alcohol abuse Son Essential hypertension Alcohol abuse Daughter No problems noted. Daughter No problems noted. Other Family history of abdominal aortic aneurysm (AAA) Social History Smoking/Tobacco Use Status: Former Tobacco Use tobacco type: cigarettes Quit Date: 03/21/89 Tobacco: How many years used: 30 Second Hand Exposure: Yes Smoking risk assessment performed?: Yes Alcohol Intake: current Alcohol Intake frequency: holidays/special occasions only Alcohol type: wine Drug use: Never Substance use type: does not use Details: alcohol: unknown Adopted: No Caregiver/Support person: No Foster care: No Household members: spouse Housing: house Number of Children: 3 number of grandchildren: 4 Communication Needs: None Education Level: high school current occupation: retired Pets and animals: No Sexually active: No Current gender identity: female What is your relationship status?: How often do you talk on the phone with friends or family?: twice per week How often do you get together with friends or relatives?: three or more times per week How often do you attend taoist or catholic services?: 1-3 times per year Do you belong to any clubs or organized social groups?: no Panel score (0-1 are the most socially isolated patients): 2 What type of physical activity do you participate in: walking Duration: < 15 minutes/day Frequency: 1-2 times per week Isadora/Confucianism: Denominational Special isadora needs: No Seatbelt use: always Helmet use: No Drive intox or ride w/intox driver starting gate: No Do you feel safe at home: Yes Do you feel safe in your relationship?: Yes Victim of physical abuse: No Victim of emotional abuse: No Victim of sexual abuse: No Would you like helpful sources: No Female Reproductive History Menstrual control method: permanent sterilization Date of menopause: 03/21/86 History History 3 Para 3 Hx # Term Pregnancies Multiple births Hx # Pregnancies Ectopic pregnancies AB induced Hx Number of Living Children AB spontaneous Past Pregnancies Del. Date GA/Weeks # Preg Succ Route Wgt Sex Labor Lgth Anesth esia Location [facility] 04/27/1963 Yes vaginal 2608.156 g Female N [facility] 07/29/1967 Yes vaginal 3373.593 g Female N [facility] 09/03/69 Yes vaginal 3061.748 g Male [place] Discharge Plan Disposition Patient Disposition: Home Discharge Details Clinical Impression: Essential hypertension, Anxiety Primary Care Provider: Antoinette Diaz ED Provider: Tad Isidro Home Meds and New Rx's Prescriptions: New lisinopril 5 mg tablet 5 mg PO DAILY Qty: 14 0RF Continued acetaminophen [Tylenol Arthritis Pain] 650 mg tablet extended release 650 mg PO Q8H fluticasone propionate [Flonase Allergy Relief] 50 mcg/actuation spray,suspension 2 spray intranasal DAILY 30 Days Qty: 16 6RF Rx Instructions: administer into each nostril aspirin 81 mg tablet,delayed release (DR/EC) 81 mg PO DAILY Qty: 1 0RF metoprolol tartrate 100 mg tablet See Rx Instructions PO BID Qty: 135 3RF Rx Instructions: t 0.5 tab qam and t1 tab qhs orally twice a day; cetirizine [Zyrtec] 10 mg tablet 10 mg PO DAILY cranberry extract 250 mg capsule 250 mg PO DAILY Rx Instructions: administer with a meal levothyroxine [Levo-T] 25 mcg tablet 12.5 mcg PO DAILY Qty: 90 1RF Hold Instructions: possible sensitivity? Rx Instructions: Trial to start for HYPOthyroid (goal; 50mcg) omeprazole-sodium bicarbonate [Zegerid] 1 EACH capsule 1 cap PO DAILY cholecalciferol (vitamin D3) 25 mcg (1,000 unit) tablet 2,000 unit PO DAILY estradiol 0.01 % (0.1 mg/gram) cream 0.25 g vaginal DAILY Qty: 42.5 0RF Rx Instructions: Massage a pea-sized amount around the vaginal opening, urethra and labia. Can use nightly x2 weeks, then decrease to twice weekly. Must use consistently for good effect. alprazolam 0.25 mg tablet 0.25 mg PO DAILY PRN (Reason: anxiety) Qty: 10 0RF Rx Instructions: Trial HALF tablet for panic episodes Praluent Pen 75 mg/mL pen injector 75 mg subcut Q14D 28 Days Qty: 2 12RF Rx Instructions: Inject 75 mg subcutaneously every 2 weeks as directed. apixaban 5 mg tablet 5 mg PO BID Qty: 60 5RF Discharge Instructions Instructions: Hypertension (ED), Anxiety (ED) Additional Instructions: Please continue to monitor your symptoms and return immediately to the emergency department for reassessment if you have any new or significant worsening of your condition. Otherwise please continue to take your medications as prescribed and follow-up with your primary care provider for recheck your blood pressure and any further medication adjustments. Referrals: Antoinette Diaz DO [Primary Care Provider] - 3 days Discharge Data Discharge Date/Time-TO BE ENTERED AT DEPARTURE: 04/25/23 11:57
[2023-04-25 10:43] LABS: ALT 27 U/L (14-59); AST 20 U/L (15-37); Alkaline Phosphatase 81 U/L (46-116); Anion Gap 10.5 mmol/L (3-11); BUN 10 mg/dL (7-18); Bilirubin, Total 0.3 mg/dL (0.2-1.0); CO2 26.5 mmol/L (21.0-32.0); CREATININE 0.8 mg/dL (0.55-1.02); Calcium 9.4 mg/dL (8.5-10.1); Chloride 103 mmol/L (98-107); Estimated GFR 76.79 (mL/min/1.73m2); Glucose 111 mg/dL (74-106); Potassium 4.2 mmol/L (3.5-5.1); Sodium 140 mmol/L (136-145); TSH (W/Ref FT4) 4.88 uIU/mL (0.36-3.74); Total Protein 8.1 g/dL (6.4-8.2); Troponin I < 50 ng/L (< or =60)
[2023-04-25 11:07] LABS: FREE T4 1.22 ng/dL (0.76-1.46)
--- NOTE | 2023-04-25 11:47 | NUR.NOTE ---
Referral faxed to Primary Care Physician for Pt to be seen in 3 days for a recheck of his High Blood Pressure
[2023-04-25 11:50] LABS: Bilirubin Negative (Negative); Blood Negative (Negative); Clarity Clear (Clear); Glucose Negative (Negative); Ketones Negative (Negative); Leukocyte Esterase Small (Negative); Nitrite Negative (Negative); Specific Gravity 1.015 (1.005-1.025); Urobilinogen 0.2 mg/dL (Up to 0.2)
[2023-04-25] MEDS: Lisinopril 10 MG TAB (11:56)
[2023-04-25 11:58] LABS: Bacteria Rare HPF (Negative); C & S Indicated? No/Sq. Contamination; Casts Negative LPF (Negative); Crystals Negative HPF (Negative); Epithelial Cells Moderate HPF (Negative); Mucus Negative (Negative); Other Cells Rare Renal (Negative); RBC Negative HPF (0-2)
[2023-05-01 06:21] LABS: Lab Add On Test COMPLETED
[2023-05-01 18:54] LABS: T3,Free 4.3 pg/mL (2.8-5.3)
[2023-05-02 10:30] LABS: Thyroglobulin Antibody <15 U/mL (<=60); Thyroperoxidase Antibody 29 U/mL (<=60)
== END 2023-04-25 11:57 | disposition home or self-care (01) ==
PROVIDERS: Emergency Provider Nurse Practitioner Family; PCP Student in an Organized Health Care Education/Training Program
DX: R42 Dizziness and giddiness (principal); R51.9 Headache, unspecified; I10 Essential (primary) hypertension; I48.0 Paroxysmal atrial fibrillation; E78.5 Hyperlipidemia, unspecified; Z86.73 Personal history of transient ischemic attack (TIA), and cerebral infarction without residual deficits; Z79.01 Long term (current) use of anticoagulants; Z87.891 Personal history of nicotine dependence
CPT/HCPCS: 80053; 86376; 93005; 99285; 70450; 81003; 81015; 83735; 84439; 84443; 84481; 84484; 85025; 93010; 99284

== ENCOUNTER → 2023-04-28 00:21 | Outpatient (CLI) | payer MEDICARE, SELFPAY ==
[2023-04-28] MEDS: Regadenoson 0.4 MG/5 ML SYR IVP (10:58)
--- NOTE | 2023-04-28 14:15 | DI.NM_ITS ---
APPROVED REPORT Exam: Pharmacologic Patient Location: Out-Patient Room/Bed: Stress Nurse: Gretel Delgado RN Ordering Provider:JANKI MI, Contact Number: BMI: 32.22 Baseline Rhythm: Sinus Rhythm Indications: Exertional Dyspnea and Dyspnea at rest Medical History Medical History: paroxysmal afib, R carotid stenosis, TIA, GERD, HLD, HTN, Anxiety, osteoporosis Cardiac Medications: Lisinopril, alirocumab, zanax, apixaban, zyrtec, Vit D2, estradiol, levothyroxin e, metoprolol tartrate, omeprazole Allergies: Penicillins, Amoxicillin, Metronidazole, Clorithalidone, Cipro, Doxycycline, Ezetimibe, Ni acin, Sulfa, HMG COA Cardiac Risk Factors: Family Hx, HTN, HLD, Former Smoker, Obesity Previous Cardiac Procedures: None Pretest Chest Pain Characteristics: None Exercise History: Sedentary Physical Disabilities: None Lung Sounds: Clear to auscultation Heart Sounds: Regular Stress Test Details Test: Pharmacologic stress testing performed using 0.4 mg of regadenoson per 5 mL given IV over 10 s econds. Nuclear Acquisition: Rest Tc-99m/Stress Tc-99m 1 day Rest Isotope: Tc-99m Sestamibi. Dose: 10 Date: 04/28/2023 Injection Time: 0920 Stress Isotope: Tc-99m Sestamibi. Dose: 30 Date: 04/28/2023 Injection Time: 1110 HR Resting HR Supine: 62 bpm Max Heart Rate (APMHR): 145.515238 bpm Target HR (85% APMHR): 123.566496 bpm Max HR Achieved: 119 bpm % of APMHR: 82.07 Recovery HR: 101 bpm BP Resting BP Supine: 182/92 mmHg Max BP: 192/82 mmHg Recovery BP: 158/92 mmHg ECG Resting ECG: Sinus Rhythm Ectopy: none Stress ECG: Sinus Rhythm ST Change: No significant ST segment changes noted Arrhythmia: None Recovery ECG: Sinus Rhythm Recovery ST Change: No significant ST segment changes noted Recovery Arrhythmia: None Clinical Rate Pressure Product: [id number] Stress ECG Conclusion 1. Normal clinical,BP ,HR and ECG responses 2. Nuclear findings reported separately Stress Test Summary STAGE HR BP SpO2 Symptoms NOTES Supine 62 182/92 97 1 min post Lexiscan injection 101 192/82 3 min post Lexiscan injection 111 168/92 6 min post Lexiscan injection 101 158/92 Laying lexiscan was performed due to patient history of syncopal episode during last pharmacologic st ress test. Patient had symptoms during exam of anxiety, VARGHESE, nausea, and fatigue. Symptoms improved at conclusion of test. MPI Conclusion Normal myocardial perfusion, no ischemia or infarct Normal LV function, EF 63% Radiologist Interpretation Radiologist agrees with Traffic Workforce Representative's Interpretation. Radiologist Interpretation by: Cheryle Church MD Interpretation Date/Time: 04/29/2023 14:32:01
== END ==
PROVIDERS: PCP Student in an Organized Health Care Education/Training Program; Visit Provider Internal Medicine Interventional Cardiology
DX: R06.09 Other forms of dyspnea
CPT/HCPCS: 78452; 93016; 93018; 93017; J2785

== ENCOUNTER → 2023-05-27 10:26 | Outpatient (BNVA) | payer MEDICARE, SELFPAY | PROVIDERS: PCP Student in an Organized Health Care Education/Training Program; Referring Provider Student in an Organized Health Care Education/Training Program; Visit Provider Internal Medicine Cardiovascular Disease | DX: R06.09 Other forms of dyspnea (principal); I65.21 Occlusion and stenosis of right carotid artery | CPT/HCPCS: 99213 ==

== ENCOUNTER 2023-06-03 02:36 | Outpatient (CLI) | payer MEDICARE, SELFPAY ==
[2023-06-06 17:42] LABS: Apolipoprotein B, Serum 90 mg/dL (48-124); Beta VLDL Cholesterol Not Detected mg/dL (<15); Beta VLDL Triglycerides Not Detected mg/dL (<15); Cholesterol, Total, CDC 165 mg/dL; Chylomicron Cholesterol 4 mg/dL; Chylomicron Triglycerides 81 mg/dL; HDL Cholesterol, CDC 36 mg/dL (>=50); LDL Cholesterol 96 mg/dL; LDL Triglycerides 78 mg/dL (<=50); Lp(a) Cholesterol <5 mg/dL (<5); LpX Not detected; Triglycerides, CDC 295 mg/dL; VLDL Cholesterol 29 mg/dL (<30); VLDL Triglycerides 113 mg/dL (<120)
== END 2023-06-03 02:37 | disposition home or self-care (01) ==
LOC: LBO 02:36
PROVIDERS: PCP Student in an Organized Health Care Education/Training Program; Referring Provider Student in an Organized Health Care Education/Training Program; Visit Provider Student in an Organized Health Care Education/Training Program
DX: E78.2 Mixed hyperlipidemia (principal)
CPT/HCPCS: 36415; 80061; 82172; 82664

== ENCOUNTER 2023-06-10 14:34 | Outpatient (REF) | payer MEDICARE, SELFPAY ==
[2023-06-10 16:46] LABS: COVID-19 PCR Negative (Negative); Influenza A PCR Positive (Negative); Influenza B PCR Negative (Negative); RSV PCR Negative (Negative)
[2023-06-10 17:06] LABS: Source NASOPHARYNX
== END 2023-06-10 14:35 | disposition home or self-care (01) ==
LOC: LBN 14:34
PROVIDERS: PCP Student in an Organized Health Care Education/Training Program; Visit Provider Student in an Organized Health Care Education/Training Program
DX: J10.1 Influenza due to other identified influenza virus with other respiratory manifestations
CPT/HCPCS: 87637

== ENCOUNTER → 2023-07-01 00:27 | Outpatient (CLI) | payer MEDICARE, SELFPAY ==
--- NOTE | 2023-07-01 07:30 | DI.MAMMO_ITS ---
Exam(s) MAMMO SCREENING EXAM: MAMMO SCREENING CLINICAL HISTORY: screening,Z12.39. TECHNIQUE: Bilateral full field digital CC and MLO mammographic images were obtained with 3D tomosyn thesis and utilizing computer aided detection (CAD). COMPARISON: Prior mammograms were reviewed. FINDINGS: There has been no significant change in the appearance and distribution of the fibroglandular tissue which is predominately fatty and there is a size discrepancy in the breast again noted, right smaller than left, unchanged from prior mammograms.. Area of asymmetric tissue in the right breast is unchanged from prior mammograms There are no new spiculated masses nor new malignant appearing microcalcification groups. There is no significant architectural distortion nor skin thickening-retraction. IMPRESSION: No radiographic evidence of malignancy. BI-RADS Category 2 - Benign Findings Breast Density - Category A - Almost entirely fatty Breast density Category C or D implies that the patient has dense breast tissue. Dense breast tissue can make it harder to find cancer on a mammogram. Dense breast tissue is also associated with an incr eased risk of breast cancer. This information about the result of the mammogram report was provided to the patient to raise their awareness. Use this report when you speak with the patient about their risks for breast cancer, which includes their family history. At that time, you may recommend additional screening tests (Ultrasoun d or MRI) as these tests may add significant information. A negative radiographic report should not delay biopsy if a dominant or clinically suspicious mass is present. Up to ten percent of cancers are not identified on mammography. A negative report may reinforce clinical impression. Adenosis and dense breasts may obscure an underlying neoplasm. False positive reports average 6 to 10%. Patient will receive a letter notifying them of these results.
== END ==
PROVIDERS: PCP Student in an Organized Health Care Education/Training Program; Visit Provider Student in an Organized Health Care Education/Training Program
DX: Z12.31 Encounter for screening mammogram for malignant neoplasm of breast (principal); R92.323 Mammographic fibroglandular density, bilateral breasts
CPT/HCPCS: 77063; 77067

== ENCOUNTER → 2023-08-03 03:50 | Outpatient (CLI) | payer MEDICARE, SELFPAY ==
--- NOTE | 2023-08-03 07:00 | DI.US_ITS ---
Exam(s) US AAA SCREENING EXAM: US AAA SCREENING CLINICAL HISTORY: evaluate for aneurysm,FORMER SMOKER,Z13.20,Z87.891,HYPERTENSION COMPARISON: US US ABDOMEN from 10/17/2019 US US ABDOMEN LIMITED from 12/28/2022 FINDINGS: Abdominal Aorta: Proximal: 1.8 x 2.8 cm Mid: 2.0 x 2.2 cm Distal: 1.6 x 2.0 cm Iliac's: Right: 1 x 1.1 cm Left: 0.7 x 1.3 cm No significant atherosclerotic disease is seen. IMPRESSION: No evidence of abdominal aortic aneurysm. DATA REPOSITORY:
--- NOTE | 2023-08-03 07:00 | DI.CTLCSR_ITS ---
Exam(s) CT CHEST LUNG CANCER SCREEN EXAM: CT CHEST LUNG CANCER SCREEN CLINICAL HISTORY: Screening for lung cancer,FORMER SMOKER, Z87.891 TECHNIQUE: Imaging Protocol: Axial computed tomography images with coronal and sagittal reformatted images were created and reviewed COMPARISON: No exams were available for comparison FINDINGS: Tracheobronchial tree: Patent where visualized. No bronchiectasis. Pulmonary parenchyma: No consolidation or dominant measurable mass. No architectural distortion. Ther e is a calcified granuloma in the right upper lobe. There is mild scarring in the medial aspect of t he right middle lobe in the left lingula. Lung Nodules: None. Mediastinum and Suellen: No dominant adenopathy or fluid collection. The esophagus is unremarkable.There is a small hiatal hernia. Thyroid gland: Unremarkable. Lymph nodes: Unremarkable. Pleura: No effusion or pneumothorax. Heart: The heart is not dilated. Coronary artery calcifications are present. No pericardial effusion . Aorta: Thoracic aorta non-dilated.Atherosclerotic calcification is present. Upper abdomen: There is a 1.3 cm nodular area on the superior aspect of the left kidney. This is in completely imaged on the current examination but a renal mass cannot be excluded. Soft Tissues: Unremarkable. Bones: Within normal limits. IMPRESSION: No pulmonary nodules. Lung RADS Cat 1 - Negative: No nodules and definitely benign nodules Lung-RADS 1.0 CATEGORIES: Category 0 - Prior chest CT exam(s) being located for comparison. Category 1 - Annual screening in 12 months. No nodules or definitely benign nodules. Category 2 - Annual screening in 12 months. Benign appearance. Nodules with low likelihood of becomin g active cancer. Category 3 - 6-month follow-up. Probably benign. Short-term follow-up suggested. Nodules with low lik elihood of becoming active cancer. Category 4A - 3-month follow-up and CT/PET if >8 mm in size. Suspicious finding. Findings which requi re additional testing. Category 4B - Findings which require additional testing and tissue sampling. Suspicious finding. Category 4X - Category 3 or 4 nodules with additional features or imaging findings that increases the suspicion of malignancy. Modifier S- Potentially clinically significant finding. (Non lung cancer) RADIATION DOSE DELIVERED: 63.71mGy.cm Total DLP 63.71mGy.cmTotal DLP DATA REPOSITORY: All CT scans at this facility are submitted to the National Radiology Data Registry (NRDR) Dose Index Registry (DIR) with the [employer] ([employer]). RADIATION OPTIMIZATION: All CT scans at this facility use at least one of these dose optimization te chniques: automated exposure control; mA and/or kV adjustment per patient size (includes targeted exa ms where dose is matched to clinical indication); or iterative reconstruction.
== END ==
PROVIDERS: PCP Student in an Organized Health Care Education/Training Program; Visit Provider Student in an Organized Health Care Education/Training Program
DX: Z87.891 Personal history of nicotine dependence (principal); I10 Essential (primary) hypertension; Z13.220 Encounter for screening for lipoid disorders
CPT/HCPCS: 71271; 76706

== ENCOUNTER → 2023-10-05 02:05 | Outpatient (CLI) | payer MEDICARE, SELFPAY ==
--- NOTE | 2023-10-05 06:45 | DI.US_ITS ---
Exam(s) US RENAL EXAM: US RENAL CLINICAL HISTORY: 1.3cm nod area on superior aspect of lt kidney,n28.89,lt kidney mass TECHNIQUE: Ultrasound of both kidneys performed using standard protocol. COMPARISON: US US AAA SCREENING from 08/03/2023 FINDINGS: RIGHT KIDNEY: Measures 9.4 cm in length. No cysts evident. Normal cortical thickness and corticomedullary different iation .No solid masses No intrarenal calculi nor hydronephrosis. LEFT KIDNEY: Measures 9.7 cm in length. No cysts evident. Normal cortical thickness and corticomedullary differen tiaion. No solids masses. No intrarenal calculi nor hydonephrosis. URINARY BLADDER: Prevoid volume is 169 cc Postvoid volume is 0 cc No evidence of bladder mass nor diverticuli. Ureterovesical jets: Both identified and appear symmetrical IMPRESSION: 1. No significant ultrasound findings in the kidneys. 2. No significant findings in the urinary bladder. DATA REPOSITORY:
== END ==
PROVIDERS: PCP Student in an Organized Health Care Education/Training Program; Visit Provider Student in an Organized Health Care Education/Training Program
DX: N28.89 Other specified disorders of kidney and ureter (principal)
CPT/HCPCS: 76770

== ENCOUNTER → 2023-10-10 01:01 | Outpatient (CLI) | payer MEDICARE, SELFPAY ==
--- NOTE | 2023-10-10 07:00 | DI.US_ITS ---
Exam(s) US CAROTID EXAM: US CAROTID CLINICAL HISTORY: R carotid stenosis,I65.21. TECHNIQUE: Ultrasound carotids performed using grayscale, color-flow, and spectral Doppler imaging. COMPARISON: US US CAROTID from 04/19/2023 FINDINGS: RIGHT CAROTID ARTERY: Plaque: Moderate severe plaque is seen in the carotid bulb and internal carotid artery. Velocity elevation: Please see below. LEFT CAROTID ARTERY: Plaque: There is mild plaque some which is calcified in the carotid bulb, internal carotid artery and distal common carotid artery. Velocity elevation: None. VERTEBRAL ARTERIES: Antegrade flow. Measurements: R Bulb: 72.8cm/s PS / 16.2cm/s ED R CCA: 106.5cm/s PS / 30.3cm/s ED R ECA: 97.9cm/s PS / 7.2cm/s ED R ICA Prox: 198.3cm/s PS / 62.7cm/s ED R ICA Mid: 185.7cm/s PS / 47cm/s ED R ICA Distal: 174.9cm/s PS /56.4cm/s ED R Vert: 70.1cm/s PS / 21.1cm/s ED R SVR: 1.9 R DVR: 2.1 L Bulb: 83.8cm/s PS / 18.1cm/s ED L CCA: 88.1cm/s PS / 21.9cm/s ED L ECA: 85.6cm/s PS / 0cm/s ED L ICA Prox: 80.1cm/s PS / 21.7cm/s ED L ICA Mid: 89.3cm/s PS / 29cm/s ED L ICA Distal: 65.9cm/s PS / 18.6cm/s ED L Vert: 89cm/s PS / 26cm/s ED L SVR: 1 L DVR: 1.3 IMPRESSION: 1. Bilateral carotid plaque, right greater than left. 2. Elevated velocities on the right resulting in 50-69 percent right internal carotid artery stenosis . 3. There is less than 50 percent stenosis seen on the left. Criteria for Carotid Stenosis: Normal: ICA PSV <125 cm/s no plaque or intimal thickening is visible. <50% stenosis: ICA PSV <125 cm/s and plaque or intimal thickening is visible. 50-69% stenosis: ICA PSV is 125-250 cm/s and plaque is visible. >70% stenosis to near occlusion: ICA PSV >250 cm/s with visible plaque and luminal narrowing. DATA REPOSITORY:
== END ==
PROVIDERS: PCP Student in an Organized Health Care Education/Training Program; Visit Provider Psychiatry & Neurology Neurology
DX: I65.21 Occlusion and stenosis of right carotid artery (principal)
CPT/HCPCS: 93880

== ENCOUNTER → 2023-10-13 13:03 | Outpatient (BNVA) | payer MEDICARE, SELFPAY | PROVIDERS: PCP Student in an Organized Health Care Education/Training Program; Referring Provider Student in an Organized Health Care Education/Training Program; Visit Provider Internal Medicine Cardiovascular Disease | DX: I10 Essential (primary) hypertension (principal); F41.9 Anxiety disorder, unspecified | CPT/HCPCS: 99024; 99213 ==

== ENCOUNTER → 2023-11-25 10:42 | Outpatient (BNVA) | payer MEDICARE, SELFPAY | PROVIDERS: PCP Student in an Organized Health Care Education/Training Program; Referring Provider Student in an Organized Health Care Education/Training Program; Visit Provider Internal Medicine Cardiovascular Disease | DX: I10 Essential (primary) hypertension (principal) | CPT/HCPCS: 99213 ==

== ENCOUNTER → 2023-12-14 10:58 | Outpatient (BNVA) | payer MEDICARE, SELFPAY | PROVIDERS: PCP Student in an Organized Health Care Education/Training Program; Visit Provider Psychiatry & Neurology Neurology | DX: R10.11 Right upper quadrant pain (principal); G56.03 Carpal tunnel syndrome, bilateral upper limbs; G45.9 Transient cerebral ischemic attack, unspecified | CPT/HCPCS: 99214 ==

== ENCOUNTER 2024-04-05 12:03 | Outpatient (REF) | payer MEDICARE, SELFPAY | END 2024-04-05 12:04 | disposition home or self-care (01) | LOC: LBN 12:03 | PROVIDERS: PCP Student in an Organized Health Care Education/Training Program; Visit Provider Obstetrics & Gynecology | DX: N89.8 Other specified noninflammatory disorders of vagina (principal) | CPT/HCPCS: 87480; 87510; 87660 ==

== ENCOUNTER 2024-05-09 11:06 | Outpatient (REF) | payer MEDICARE, SELFPAY | END 2024-05-09 11:07 | disposition home or self-care (01) | LOC: LBN 11:06 | PROVIDERS: PCP Nurse Practitioner Family; Visit Provider Obstetrics & Gynecology | DX: N94.9 Unspecified condition associated with female genital organs and menstrual cycle (principal); N89.8 Other specified noninflammatory disorders of vagina | CPT/HCPCS: 87480; 87510; 87660 ==

== ENCOUNTER 2024-06-13 01:03 | Outpatient (CLI) | payer MEDICARE, SELFPAY ==
--- NOTE | 2024-06-13 06:15 | DI.US_ITS ---
Exam(s) US ABDOMEN LIMITED EXAM: US ABDOMEN LIMITED CLINICAL HISTORY: RUQ pain,r10.11 TECHNIQUE: Ultrasound abdomen performed using standard protocol. COMPARISON: US US ABDOMEN LIMITED from 12/28/2022 FINDINGS: LIVER: Increased echogenicity and decreased through transmission consistent with hepatic steatosis. Liver size is normal with cephalo caudad dimension of 13.3 cm. No focal liver lesions are seen. GALLBLADDER: No evidence of cholelithiasis. No evidence of wall thickening. No pericholecystic fluid identified. GALARZA'S SIGN: Negative. BILIARY SYSTEM: No intrahepatic or extrahepatic biliary ductal dilation. Right kidney: No evidence of renal calculi. No evidence of hydronephrosis. No renal mass or cyst iden tified. PANCREAS: Normal where visualized. ABDOMINAL AORTA AND IVC: Visualized portions normal caliber. ASCITES: None seen. IMPRESSION: Moderate hepatic steatosis. No gallstones or biliary dilatation. DATA REPOSITORY:
--- NOTE | 2024-06-13 06:15 | DI.NM_ITS ---
Exam(s) NM HEPATOBILIARY CCK GRP EXAM: NM HEPATOBILIARY CCK GRP CLINICAL HISTORY: colicky RUQ pain,r10.11. TECHNIQUE: Injected dose: 5 mCi Tc-99 mebrofenin Initial dynamic images: 60 minutes Post-Gallbladder fillin.02 mcg/kg CCK intravenously over a 30min infusion. Additional images: 30 minute dynamic during CCK administration. COMPARISON: US US ABDOMEN LIMITED from 06/13/2024 FINDINGS: Normal hepatic transit time. Prompt excretion into the small bowel. Prompt excretion into the gallbladder. Gallbladder ejection fraction: 23 percent, below the normal range. IMPRESSION: 1. Low gallbladder ejection fraction. SNM guidelines: Gallbladder visualization should be present by 3 hours. Delayed [id number] villarreal sit beyond 60 min raises the suspicion for partial common bile duct (CBD) obstruction. Gallbladder ejection fraction <35% has a good correlation with acalculous disease (i.e., chronic acal culous cholecystitis, cystic duct syndrome, sphincter of Oddi disease).
[2024-06-13 07:55] LABS: Abs Immature Grans 0.01 10^3/uL (0.0-0.06); Absolute Basophil Count 0.04 10^3/uL (0.0-0.2); Absolute Lymphocyte Count 1.91 10^3/uL (1.2-3.4); Absolute Monocyte Count 0.56 10^3/uL (0.1-0.8); Absolute Neutrophil Count 2.95 10^3/uL (1.2-6.7); Basophils % 0.7 %; Eosinophils % 1.8 %; HCT 40.5 % (36.0-46.0); HGB 12.7 g/dL (11.2-15.7); Immature Grans % 0.2 %; Lymphocytes % 34.3 %; MCH 27.6 pg (27.0-33.0); MCHC 31.4 % (32.0-36.0); MCV 88 fL (80-95); MPV 10.3 fL (8.0-11.0); Monocytes % 10.1 %; Neutrophils % 52.9 %; Platelet Count 320 10^3/uL (130-400); RDW 13.2 % (11.7-14.6); RDW-SD 42.7 fL; WBC 5.57 10^3/uL (4.4-10.8)
[2024-06-13 08:07] LABS: Hemoglobin A1C 6.2 % (<5.7)
[2024-06-13 08:27] LABS: ALT 24 U/L (14-59); AST 19 U/L (15-37); Alkaline Phosphatase 76 U/L (46-116); Anion Gap 9.2 mmol/L (3-11); BUN 13 mg/dL (7-18); Bilirubin, Total 0.3 mg/dL (0.2-1.0); CO2 27.8 mmol/L (21.0-32.0); CREATININE 0.8 mg/dL (0.55-1.02); Calcium 9.3 mg/dL (8.5-10.1); Calculated LDL 48 mg/dL (<100); Chloride 105 mmol/L (98-107); Cholesterol 147 mg/dL (<200); Estimated GFR 76.31 (mL/min/1.73m2); Glucose 110 mg/dL (74-106); HDL Cholesterol 45 mg/dL (>or=50); Potassium 4.1 mmol/L (3.5-5.1); Sodium 142 mmol/L (136-145); Total Protein 7.8 g/dL (6.4-8.2); Triglyceride 272 mg/dL (<150)
[2024-06-13] MEDS: Water,Injection,Sterile 10 ML VIAL IJ (09:23)
[2024-06-13] MEDS: Sincalide 5 MCG VIAL 1.6 MCG IJ (09:24)
[2024-06-13 18:05] LABS: T4, Free 0.9 ng/dL (0.8-2.2)
== END 2024-06-13 01:23 ==
LOC: DI 01:03
PROVIDERS: PCP Nurse Practitioner Family; Visit Provider Nurse Practitioner Family
DX: R10.11 Right upper quadrant pain (principal); R73.03 Prediabetes; G45.9 Transient cerebral ischemic attack, unspecified; R79.89 Other specified abnormal findings of blood chemistry; K76.0 Fatty (change of) liver, not elsewhere classified
CPT/HCPCS: 78227; 80053; 80061; J2805; 76705; 83036; 84439; 84443; 85025

== ENCOUNTER → 2024-08-23 10:53 | Outpatient (BNVA) | payer MEDICARE, SELFPAY | PROVIDERS: PCP Nurse Practitioner Family; Referring Provider Nurse Practitioner Family; Visit Provider Surgery | DX: K82.8 Other specified diseases of gallbladder (principal) | CPT/HCPCS: 99215 ==

== ENCOUNTER 2024-09-05 11:16 | Outpatient (CLI) | payer MEDICARE, SELFPAY ==
--- NOTE | 2024-09-05 11:15 | RT.EKG_ITS ---
APPROVED REPORT Exam: Resting ECG Reason for Exam: SOB Patient Location: O HR:64 bpm ECG Measurements Heart Rate 64 AXIS LA 181 P 54 QRSd 94 QRS 13 QT 387 T 13 QTc 400 Conclusion Sinus rhythm...normal P axis, V-rate 50- 99 Normal Electrocardiogram
== END 2024-09-05 11:17 | disposition home or self-care (01) ==
LOC: DI.CM 11:17
PROVIDERS: PCP Nurse Practitioner Family; Visit Provider Nurse Practitioner Family
DX: R06.02 Shortness of breath (principal)
CPT/HCPCS: 93010

== ENCOUNTER 2024-09-14 10:52 | Outpatient (RCR) | payer MEDICARE, SELFPAY | END 2024-09-17 23:59 | disposition home or self-care (01) | LOC: CARDOPNVT 10:52 | PROVIDERS: PCP Nurse Practitioner Family; Referring Provider Nurse Practitioner Family; Visit Provider Internal Medicine Cardiovascular Disease | DX: R00.2 Palpitations (principal); I49.1 Atrial premature depolarization; I49.3 Ventricular premature depolarization | CPT/HCPCS: 93227; 93225; 93226 ==

== ENCOUNTER 2024-11-07 02:03 | Outpatient (CLI) | payer MEDICARE, SELFPAY ==
--- NOTE | 2024-11-07 06:45 | DI.DEXA_ITS ---
Exam(s) XR DEXA BONE DENSITY W/WO PANTERA EXAM: XR DEXA BONE DENSITY W/WO PANTERA CLINICAL HISTORY: osteopenia,asymptomatic menopausal state,z78.0 TECHNIQUE: [employer] C densitometer analysis of left hip, lumbar spine and left forearm. Lateral survey image of the thoracic and lumbar spine. COMPARISON: 2005, 2007 and 2009 FINDINGS: Lateral view of the thoracic and lumbar spine shows no evidence of compression fractures. Bone mineral density measurements of the lumbar spine correspond to a total T- score of -1.8, in the osteopenic range. This represents a 4.3 percent increase from 2009 and 10.0 percent increase from 2005. Bone mineral density measurements of the left hip correspond to a total T-score of -0.7. This represents a 6 percent increase from 2009 and 3.5 percent increase from 2005 the femoral neck T-score is -1.7, in the osteopenic range. . Theleft forearm bone mineral density measurements correspond to a T-score of the distal 3rd of -3.0, in the osteoporotic range. This represents a 9.5 percent decrease from 2009. The forearm was not analyzed in 2005 or 2007. IMPRESSION: Osteopenia of the spine and hip with increases from prior exams. 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
--- NOTE | 2024-11-07 07:47 | DI.RAD_ITS ---
Exam(s) XR CHEST 2V PA LATERAL EXAM: XR CHEST 2V PA LATERAL CLINICAL HISTORY: chronic SOB,chronic dyspnea,r06.09 TECHNIQUE: 2D digital imaging was performed. Two views. COMPARISON: CT CT CHEST LUNG CANCER SCREEN from 08/03/2023 FINDINGS: HEART: Normal size. Aorta: Not dilated. PULMONARY VASCULATURE: Normal. MEDIASTINUM: Unremarkable. LUNGS: Clear. PLEURAL SPACE: No pleural effusion or pneumothorax. BONE:Stable mild T9 compression fracture. SOFT TISSUES: Unremarkable. IMPRESSION: No acute abnormality. DATA REPOSITORY: RADIATION DOSE DELIVERED:
== END 2024-11-07 02:23 ==
LOC: DI 02:03
PROVIDERS: PCP Nurse Practitioner Family; Visit Provider Nurse Practitioner Family
DX: R06.09 Other forms of dyspnea (principal); Z78.0 Asymptomatic menopausal state; M81.0 Age-related osteoporosis without current pathological fracture
CPT/HCPCS: 77080; 71046

== ENCOUNTER 2024-11-12 03:26 | Outpatient (CLI) | payer MEDICARE, SELFPAY ==
--- NOTE | 2024-11-12 06:53 | DI.MAMMO_ITS ---
Exam(s) MAMMO SCREENING EXAM: MAMMO SCREENING CLINICAL HISTORY: screening Z12.39 TECHNIQUE: Bilateral full field digital CC and MLO mammographic images were obtained with 3D tomosynthesis and utilizing computer aided detection (CAD). COMPARISON: Comparison is made with prior examinations. FINDINGS: The left breast is again shown to be larger than the right breast. This is stable. Masses/Architectural Distortion: No suspicious masses or areas of architectural distortion are present. There is stable asymmetric breast tissue in the upper outer quadrant of the right breast. Microcalcifications: No suspicious pleomorphic-type are seen. Skin Thickening/Nipple Retraction: None. IMPRESSION: 1. No significant interval change with no specific features of malignancy noted. 2. Unless there is more urgent need, screening mammography is recommended, as per [employer] guidelines. BI-RADS Category 2 - Benign Findings Breast Density - Category A - The breast are almost entirely fatty. Breast density Category C or D implies that the patient has dense breast tissue. Dense breast tissue can make it harder to find cancer on a mammogram. Dense breast tissue is also associated with an increased risk of breast cancer. This information about the result of the mammogram report was provided to the patient to raise their awareness. Use this report when you speak with the patient about their risks for breast cancer, which includes their family history. At that time, you may recommend additional screening tests (Ultrasound or MRI) as these tests may add significant information. A negative radiographic report should not delay biopsy if a dominant or clinically suspicious mass is present. Up to ten percent of cancers are not identified on mammography. A negative report may reinforce clinical impression. Adenosis and dense breasts may obscure an underlying neoplasm. False positive reports average 6 to 10%. Patient will receive a letter notifying them of these results.
== END 2024-11-12 03:46 ==
LOC: DI 03:26
PROVIDERS: PCP Nurse Practitioner Family; Visit Provider Nurse Practitioner Family
DX: Z12.31 Encounter for screening mammogram for malignant neoplasm of breast (principal); R92.313 Mammographic fatty tissue density, bilateral breasts
CPT/HCPCS: 77063; 77067

== ENCOUNTER 2024-11-13 03:48 | Outpatient (CLI) | payer MEDICARE, SELFPAY ==
[2024-11-13] MEDS: Inhaler, Assist Device 1 EACH MC (14:01)
[2024-11-13] MEDS: Levalbuterol HFA 15 GM INH 4 PUFF IH (14:02)
--- NOTE | 2024-11-14 07:47 | W.PFT ---
Date of service: 11/13/24 Time of Service: 12:53 Pulmonary Function Test Result Indications: Dyspnea, cough Impression 1. Good patient effort was noted. ATS standards for reproducibility were met. 2. Normal spirometry. 3. Following the administration of a bronchodilator there was a significant response 4. TLC was normal. No evidence of restrictive lung disease 5. DLCO was at the lower end of normal indicating borderline normal alveolar gas exchange
== END 2024-11-13 03:49 | disposition home or self-care (01) ==
LOC: RT 03:48
PROVIDERS: PCP Nurse Practitioner Family; Visit Provider Internal Medicine Pulmonary Disease
DX: R06.09 Other forms of dyspnea (principal)
CPT/HCPCS: 94060; 94726; 94729

== ENCOUNTER → 2024-11-23 10:21 | Outpatient (BNVA) | payer MEDICARE, SELFPAY | PROVIDERS: PCP Nurse Practitioner Family; Visit Provider Internal Medicine Cardiovascular Disease | DX: R06.09 Other forms of dyspnea (principal); I10 Essential (primary) hypertension | CPT/HCPCS: 99213 ==

== ENCOUNTER 2024-12-11 00:47 | Outpatient (CLI) | payer MEDICARE, SELFPAY ==
--- NOTE | 2024-12-11 06:26 | DI.US_ITS ---
Exam(s) US CAROTID EXAM: US CAROTID CLINICAL HISTORY: R ICA stenosis,i65.21. TECHNIQUE: Ultrasound carotids performed using grayscale, color-flow, and spectral Doppler imaging. COMPARISON: US US CAROTID from 10/10/2023 FINDINGS: RIGHT CAROTID ARTERY: Plaque: Mild scattered plaque along the common carotid artery. Focal plaque at the common carotid bulb and proximal internal carotid artery. Velocity elevation: Elevated velocity measurements in the proximal right internal carotid artery. LEFT CAROTID ARTERY: Plaque: Minimal. Velocity elevation: None. VERTEBRAL ARTERIES: Antegrade flow. Measurements: R Bulb: 95.7cm/s PS / 19.3cm/s ED R CCA: 104.8cm/s PS / 20.6cm/s ED R ECA: 121.6cm/s PS / 2.9cm/s ED R ICA Prox: 214.1cm/s PS / 70.4cm/s ED -mildly increased from previous exam where it measured 198/63 cm/s R ICA Mid: 145.8cm/s PS / 40.2cm/s ED R ICA Distal: 66.9cm/s PS /21.9cm/s ED R Vert: 93.2cm/s PS / 32.3cm/s ED R SVR: 2 R DVR: 3.4 L Bulb: 88.1cm/s PS / 26.8cm/s ED L CCA: 87cm/s PS / 25.8cm/s ED L ECA: 107.5cm/s PS / 2cm/s ED L ICA Prox: 102.4cm/s PS / 36.3cm/s ED L ICA Mid: 92.8cm/s PS / 29.8cm/s ED L ICA Distal: 59.2cm/s PS / 22.5cm/s ED L Vert: 70.5cm/s PS / 22.5cm/s ED L SVR: 1.2 L DVR: 1.4 IMPRESSION: The velocity elevations in the proximal right internal carotid artery have mildly increased from the previous exam, but still in the 50-69 percent range. Criteria for Carotid Stenosis: Normal: ICA PSV <125 cm/s no plaque or intimal thickening is visible. <50% stenosis: ICA PSV <125 cm/s and plaque or intimal thickening is visible. 50-69% stenosis: ICA PSV is 125-250 cm/s and plaque is visible. >70% stenosis to near occlusion: ICA PSV >250 cm/s with visible plaque and luminal narrowing. DATA REPOSITORY:
== END 2024-12-11 01:07 ==
LOC: DI 00:47
PROVIDERS: PCP Nurse Practitioner Family; Visit Provider Psychiatry & Neurology Neurology
DX: I65.21 Occlusion and stenosis of right carotid artery (principal)
CPT/HCPCS: 93880

== ENCOUNTER → 2024-12-12 11:11 | Outpatient (BNVA) | payer MEDICARE, SELFPAY | PROVIDERS: PCP Nurse Practitioner Family; Visit Provider Psychiatry & Neurology Neurology | DX: I65.21 Occlusion and stenosis of right carotid artery (principal); E78.2 Mixed hyperlipidemia; Z78.9 Other specified health status; G56.03 Carpal tunnel syndrome, bilateral upper limbs; R10.11 Right upper quadrant pain | CPT/HCPCS: 99214 ==